=== PATIENT | male | born 1955 | race Caucasian/White ===

== ENCOUNTER 2021-03-19 10:38 | Inpatient (IN) | payer MEDICARE, OTHER ==
[2021-03-19] MEDS ORDERED: ALBUTEROL NEBULIZED 2.5 MG/3 ML INHALATION STA (11:19)
[2021-03-19] MEDS ORDERED: IPRATROPIUM-ALBUTEROL 3 ML NEB INHALATION STA (11:19)
[2021-03-19 12:34] LABS: Basophils % (A) 0 %; Eosinophils # (A) 0.2 k/uL (0-0.7); Eosinophils % (A) 1 %; HCT 45.7 % (39.0-53.0); HGB 14.7 gm/dL (13.0-17.5); Hypochromasia Slight; Lymphocytes # (A) 1.3 k/uL (1.0-4.8); Lymphocytes % (A) 7 %; MCH 28.7 pg (25.0-35.0); MCHC 32.2 g/dL (31.0-37.0); Mean Platelet Volume 7.6; Monocytes # (A) 1.2 k/uL (0-1.0); Monocytes % (A) 7 %; Neutrophils # (A) 15.1 k/uL (1.3-7.7); Neutrophils % (A) 84 %; Platelet Count 447 k/uL (150-450); RBC 5.14 m/uL (4.30-5.90); RDW 14.3 % (11.5-15.5); WBC 18.1 k/uL (3.8-10.6)
[2021-03-19 12:44] LABS: ALT 21 U/L (4-49); AST 28 U/L (17-59); African American GFR (CKD) >90 (>60 ml/min/1.73 sqM); Albumin 3.4 g/dL (3.5-5.0); Alkaline Phosphatase 158 U/L (38-126); Anion Gap 10 mmol/L; Blood Urea Nitrogen 12 mg/dL (9-20); Calcium 8.8 mg/dL (8.4-10.2); Carbon Dioxide 28 mmol/L (22-30); Chloride 87 mmol/L (98-107); Glucose 101 mg/dL (74-99); Non-African American GFR(CKD) >90 (>60 ml/min/1.73 sqM); Potassium 5.2 mmol/L (3.5-5.1); Sodium 125 mmol/L (137-145); Total Bilirubin 0.4 mg/dL (0.2-1.3); Total Protein 6.6 g/dL (6.3-8.2)
[2021-03-19 12:56] LABS: VBG PH 7.38 (7.31-7.41)
[2021-03-19 13:02] LABS: Partial Thromboplastin Time 23.3 sec (22.0-30.0); Prothrombin Time 10.8 sec (9.0-12.0)
--- NOTE | 2021-03-19 13:03 | XR ---
EXAMINATION TYPE: XR chest 2V DATE OF EXAM: 03/19/2021 COMPARISON: NONE TECHNIQUE: PA and lateral views submitted. HISTORY: Shortness of breath FINDINGS: Bilateral infiltrate and pleural effusion with interstitial pattern. No pneumothorax. Hyperinflation compatible COPD and there is hypertrophic and degenerative change of the spine. Arthropathy of the sh oulders. IMPRESSION: 1. Bilateral infiltrate and pleural effusion correlate for pneumonia versus CHF.
--- NOTE | 2021-03-19 14:23 | ED ---
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 He states he has been short of breath for the past 4 weeks. He does not wear oxygen at home. Normally sees Dr. Phillip from pulmonology. States that he does not want to follow with him any longer. He denies a cough or fevers. Does admit that the shortness of breath is exertional. Denies history of congestive heart failure. He uses his nebulizer as needed, additionally uses inhalers twice daily. States that his shortness of breath has gotten progressively worse to the point where he decided to come into the emergency department. His pulse ox normally reads around 60% when ambulatory. He presents today with oxygen level of 70% in triage and significant increased worker breathing. Denies history of DVT or PE. Patient not on any anticoagulation. No cold exposures. Is Covid vaccinated. No other alleviating precipitating or mottling factors - Related Data Home Medications Medication Instructions Recorded Confirmed Albuterol Sulfate [Ventolin HFA] 2 puff INHALATION RT-QID PRN 03/19/21 03/19/21 Budesonide [Pulmicort] 0.5 mg INHALATION RT-BID 03/19/21 03/19/21 Diltiazem Cd [Cardizem CD] 180 mg PO DAILY 03/19/21 03/19/21 Famotidine [Pepcid] 20 mg PO DAILY 03/19/21 03/19/21 Ipratropium-Albuterol Nebulize 3 ml INHALATION RT-BID PRN 03/19/21 03/19/21 [Duoneb 0.5 mg-3 mg/3 ml Soln] Montelukast [Singulair] 10 mg PO HS 03/19/21 03/19/21 Omeprazole [PriLOSEC] 20 mg PO DAILY 03/19/21 03/19/21 lisinopriL [Zestril] 5 mg PO DAILY 03/19/21 03/19/21 Allergies Allergy/AdvReac Type Severity Reaction Status Date / Time No Known Allergies Allergy Verified 03/19/21 12:44 Review of Systems ROS Statement: Those systems with pertinent positive or pertinent negative responses have been documented in the HPI. ROS Other: All systems not noted in ROS Statement are negative. Past Medical History Past Medical History: COPD, Hyperlipidemia, Hypertension Additional Past Medical History / Comment(s): burggers History of Any Multi-Drug Resistant Organisms: None Reported Additional Past Surgical History / Comment(s): bilat bka Past Psychological History: No Psychological Hx Reported Smoking Status: Former smoker Past Alcohol Use History: None Reported Past Drug Use History: None Reported General Exam Limitations: physical limitation Course Vital Signs 03/19/21 03/19/21 03/19/21 10:56 11:14 11:23 Temperature 98.2 F Pulse Rate 102 H 101 H 104 H Respiratory 26 H 28 H Rate Blood Pressure 153/83 O2 Sat by Pulse 91 L Oximetry 03/19/21 03/19/21 03/19/21 11:42 12:00 14:15 Temperature Pulse Rate 98 98 101 H Respiratory 28 H 22 Rate Blood Pressure 152/72 O2 Sat by Pulse 93 L 93 L Oximetry Medical Decision Making - Medical Decision Making On arrival patient is promptly placed in a trauma 1. A thorough history and physical exam is performed. Patient is placed on a nonrebreather. He is given a DuoNeb breathing treatment followed by an albuterol treatment. IV is established. Laboratory studies were conducted. I count 18.1. D-dimer 2.39. Sodium 125. BNP is 548. Patient does go over for chest x-ray which demonstr ates bilateral infiltrate and pleural effusions. Correlate for pneumonia versus CHF. Patient was over for CT of his chest due to his elevated d-dimer which demonstrates that he does not have a central PE. Tiny bilateral pleural effusions with some emphysematous changes and groundglass opacities right greater than left. Correlate for multifocal acute infectious process. Patient is swabbed for covid. Blood cultures are obtained and the patient is initiated on antibiotics. Solu-Medrol and magnesium were ordered for the patient COPD. Spoke with Dr. Glover who agreed to admit the patient. He is currently awaiting a bed on the floor - Lab Data Result diagrams: 03/19/21 12:00 03/19/21 12:00 Lab Results 03/19/21 03/19/21 03/19/21 Range/Units 12:00 12:00 12:00 WBC 18.1 H (3.8-10.6) k/uL RBC 5.14 (4.30-5.90) m/uL Hgb 14.7 (13.0-17.5) gm/dL Hct 45.7 (39.0-53.0) % MCV 89.0 (80.0-100.0) fL MCH 28.7 (25.0-35.0) pg MCHC 32.2 (31.0-37.0) g/dL RDW 14.3 (11.5-15.5) % Plt Count 447 (150-450) k/uL MPV 7.6 Neutrophils % 84 % Lymphocytes % 7 % Monocytes % 7 % Eosinophils % 1 % Basophils % 0 % Neutrophils # 15.1 H (1.3-7.7) k/uL Lymphocytes # 1.3 (1.0-4.8) k/uL Monocytes # 1.2 H (0-1.0) k/uL Eosinophils # 0.2 (0-0.7) k/uL Basophils # 0.0 (0-0.2) k/uL Hypochromasia Slight PT 10.8 (9.0-12.0) sec INR 1.0 (<1.2) APTT 23.3 (22.0-30.0) sec D-Dimer 2.39 H (<0.60) mg/L FEU VBG pH (7.31-7.41) VBG pCO2 (37-51) mmHg VBG HCO3 (24-28) mmol/L Sodium 125 L (137-145) mmol/L Potassium 5.2 H (3.5-5.1) mmol/L Chloride 87 L (98-107) mmol/L Carbon Dioxide 28 (22-30) mmol/L Anion Gap 10 mmol/L BUN 12 (9-20) mg/dL Creatinine 0.56 L (0.66-1.25) mg/dL Est GFR (CKD-EPI)AfAm >90 (>60 ml/min/1.73 sqM) Est GFR (CKD-EPI)NonAf >90 (>60 ml/min/1.73 sqM) Glucose 101 H (74-99) mg/dL Plasma Lactic Acid Jesus (0.7-2.0) mmol/L Calcium 8.8 (8.4-10.2) mg/dL Total Bilirubin 0.4 (0.2-1.3) mg/dL AST 28 (17-59) U/L ALT 21 (4-49) U/L Alkaline Phosphatase 158 H (38-126) U/L Troponin I (0.000-0.034) ng/mL NT-Pro-B Natriuret Pep pg/mL Total Protein 6.6 (6.3-8.2) g/dL Albumin 3.4 L (3.5-5.0) g/dL 03/19/21 03/19/21 03/19/21 Range/Units 12:00 12:00 12:00 WBC (3.8-10.6) k/uL RBC (4.30-5.90) m/uL Hgb (13.0-17.5) gm/dL Hct (39.0-53.0) % MCV (80.0-100.0) fL MCH (25.0-35.0) pg MCHC (31.0-37.0) g/dL RDW (11.5-15.5) % Plt Count (150-450) k/uL MPV Neutrophils % % Lymphocytes % % Monocytes % % Eosinophils % % Basophils % % Neutrophils # (1.3-7.7) k/uL Lymphocytes # (1.0-4.8) k/uL Monocytes # (0-1.0) k/uL Eosinophils # (0-0.7) k/uL Basophils # (0-0.2) k/uL Hypochromasia PT (9.0-12.0) sec INR (<1.2) APTT (22.0-30.0) sec D-Dimer (<0.60) mg/L FEU VBG pH (7.31-7.41) VBG pCO2 (37-51) mmHg VBG HCO3 (24-28) mmol/L Sodium (137-145) mmol/L Potassium (3.5-5.1) mmol/L Chloride (98-107) mmol/L Carbon Dioxide (22-30) mmol/L Anion Gap mmol/L BUN (9-20) mg/dL Creatinine (0.66-1.25) mg/dL Est GFR (CKD-EPI)AfAm (>60 ml/min/1.73 sqM) Est GFR (CKD-EPI)NonAf (>60 ml/min/1.73 sqM) Glucose (74-99) mg/dL Plasma Lactic Acid Jesus 1.2 (0.7-2.0) mmol/L Calcium (8.4-10.2) mg/dL Total Bilirubin (0.2-1.3) mg/dL AST (17-59) U/L ALT (4-49) U/L Alkaline Phosphatase (38-126) U/L Troponin I <0.012 (0.000-0.034) ng/mL NT-Pro-B Natriuret Pep 548 pg/mL Total Protein (6.3-8.2) g/dL Albumin (3.5-5.0) g/dL 03/19/21 Range/Units 12:41 WBC (3.8-10.6) k/uL RBC (4.30-5.90) m/uL Hgb (13.0-17.5) gm/dL Hct (39.0-53.0) % MCV (80.0-100.0) fL MCH (25.0-35.0) pg MCHC (31.0-37.0) g/dL RDW (11.5-15.5) % Plt Count (150-450) k/uL MPV Neutrophils % % Lymphocytes % % Monocytes % % Eosinophils % % Basophils % % Neutrophils # (1.3-7.7) k/uL Lymphocytes # (1.0-4.8) k/uL Monocytes # (0-1.0) k/uL Eosinophils # (0-0.7) k/uL Basophils # (0-0.2) k/uL Hypochromasia PT (9.0-12.0) sec INR (<1.2) APTT (22.0-30.0) sec D-Dimer (<0.60) mg/L FEU VBG pH 7.38 (7.31-7.41) VBG pCO2 54 H (37-51) mmHg VBG HCO3 31 H (24-28) mmol/L Sodium (137-145) mmol/L Potassium (3.5-5.1) mmol/L Chloride (98-107) mmol/L Carbon Dioxide (22-30) mmol/L Anion Gap mmol/L BUN (9-20) mg/dL Creatinine (0.66-1.25) mg/dL Est GFR (CKD-EPI)AfAm (>60 ml/min/1.73 sqM) Est GFR (CKD-EPI)NonAf (>60 ml/min/1.73 sqM) Glucose (74-99) mg/dL Plasma Lactic Acid Jesus (0.7-2.0) mmol/L Calcium (8.4-10.2) mg/dL Total Bilirubin (0.2-1.3) mg/dL AST (17-59) U/L ALT (4-49) U/L Alkaline Phosphatase (38-126) U/L Troponin I (0.000-0.034) ng/mL NT-Pro-B Natriuret Pep pg/mL Total Protein (6.3-8.2) g/dL Albumin (3.5-5.0) g/dL - EKG Data EKG Comments: EKG demonstrates sinus tachycardia with a ventricular rate of 11. IL interval 146. QRS 92. QTC 456. Some baseline artifact. No acute ST segment elevations or depressions Disposition Clinical Impression: Hypoxia, CAP (community acquired pneumonia), COPD (chronic obstructive pulmonary disease), Leukocytosis Disposition: ADMITTED IP TO THIS HOSP Condition: Serious Is patient prescribed a controlled substance at d/c from ED?: No Referrals: David Dasilva MD [Primary Care Provider] - 1-2 days Decision to Admit Reason: Admit from EC Decision Date: 03/19/21 Decision Time: 14:43
--- NOTE | 2021-03-19 14:37 | CT ---
EXAMINATION TYPE: CT chest angio for PE DATE OF EXAM: 03/19/2021 COMPARISON: Chest x-ray earlier today HISTORY: Shortness of breath, hypoxia, elevated d-dimer CT DLP: 799.2 mGycm Automated exposure control for dose reduction was used. CONTRAST: CT Chest for pulmonary embolism performed with with IV Contrast, patient injected with 100 mL of Isov ue 370. FINDINGS: LUNGS: Moderate emphysematous change greatest in the upper lungs and periphery is present. There are tiny right greater than left pleural effusions including extension of pleural fluid in the right lung into the right-sided fissure. There are multifocal areas of groundglass opacity in the left midlung. There is dense consolidation in the right lower lobe greatest posterior basilar region. Groundglass opacity and organizing consolidation in the posterior left lung base also present. No pneumothorax se en bilaterally. MEDIASTINUM: There is suboptimal study with equal dense contrast in the aorta versus pulmonary arteri es and most dense contrast in the SVC. No central pulmonary embolism is present. This heterogeneity making evaluation for peripheral segmental and subsegmental PE suboptimal. Satisfactory enhancement o f the thoracic aorta without aneurysm or dissection is noted. Enlarged main pulmonary artery of 3.5 c m axial image 61 consistent with product of underlying pulmonary artery hypertension. There are promi nent bilateral hilar lymph nodes. There is enlarged 2.2 x 1.3 cm subcarinal lymph node image 76. Ther e are prominent partially calcified AP window lymph nodes. There is slightly enlarged 1.5 x 1.1 cm ri ght paratracheal lymph node axial image 57. Heart size upper limits of normal. There is lipomatous hy pertrophy of the intra-arterial septum with mass effect on the anterior wall of the left atrium. Ther e is moderate right atrial dilatation. No pericardial effusion is seen. OTHER: Moderate multilevel spurring in the visualized spine. IMPRESSION: 1. Suboptimal study without central pulmonary embolism. Smaller peripheral segmental and subsegmental PE not entirely excluded on this study. 2. Tiny bilateral pleural effusions. Background moderate to advanced emphysematous change with left m idlung multifocal groundglass opacities and basilar groundglass opacities with organizing consolidati ons right greater than left. Correlate for multifocal acute infectious process. Reactive thoracic livia nopathy suspected.
[2021-03-19] MEDS ORDERED: MAGNESIUM SULFATE-D5W PMX 1 GM in DEXTROSE/WATER 1 100ML.BAG IVPB ONE (14:39)
[2021-03-19] MEDS ORDERED: methylPREDNISolone SOD SUCCI 125 MG/2 ML VIAL IV STA (14:39)
[2021-03-19] MEDS ORDERED: cefTRIAXone IN SWFI 1,000 MG/10 ML SYRINGE IVP STA (14:39)
[2021-03-19] MEDS ORDERED: AZITHROMYCIN 500 MG in SODIUM CHLORIDE 0.9% 250 ML IVPB STA (14:39)
[2021-03-19] MEDS ORDERED: NALOXONE 0.4 MG/ML 1 ML VIAL IV PRN (15:24)
--- NOTE | 2021-03-19 16:40 | P.CNPUL ---
History of Present Illness Consult date: 03/19/21 Requesting physician: Enid Parkinson Reason for consult: dyspnea Chief complaint: Shortness of breath History of present illness: This is a 65-year-old male patient with past medical history of COPD, former smoker, hypertension, hyperlipidemia, bilateral below the knee amputations [place] to Burger syndrome [place] [address] Betancur, who presented to the emergency department on 03/19/2021 complaining of increased shortness of breath for the past 4 weeks. He is not oxygen dependent at baseline. He normally sees Dr. Inocente Phillip for his history of COPD however does not want to follow with him any l onger. He states he has advanced COPD, and was recently told that his FEV1 dropped from 36% down to 22% in November of this year. He describes progressive shortness of breath, and now he is short of breath just getting dressed. Denied any worsening cough, denied any fevers, at times is able to produce some white colored phlegm. His shortness of breath is mostly exertional. Denies any history of chronic CHF. No lower extremity swelling. He is on nebulized Pulmicort, Ventolin HFA inhaler, and Singulair. His chest x-ray showed bilateral infiltrates and pleural effusions with the possibility of pneumonia versus CHF. There was hyperinflation compatible with COPD. COVID 19 PCR was negative, admission blood work showed elevated d-dimer of 2.39, and for that reason CTA chest was completed, showing no evidence of central pulmonary embolism, this was a suboptimal study, small peripheral segmental and subsegmental PEs could not entirely be excluded. There was evidence of tiny bilateral pleural effusions, on a background of moderate to advanced emphysematous changes with left midlung multifocal groundglass opacities and basilar groundglass opacities with organizing consolidations right greater than left, with suspicion of multifocal acute infectious process. Patient did have leukocytosis with a white blood cell, of 18.1, hemoglobin was 14.7, sodium was 125, potassium is 5.2, chloride was 87, CO2 was 28, BUN is 12, creatinine 0.56, troponin was less than 0.012, proBNP was 548, LFTs were within normal limits. Patient was started on a combination of azithromycin and Rocephin, IV steroids with Solu-Medrol 40 mg every 8 hours, nebulized bronchodilators and this consult was initiated. Review of Systems All systems: negative Constitutional: Denies chills, Denies fever Eyes: denies blurred vision, denies pain Ears, nose, mouth and throat: Denies headache, Denies sore throat Cardiovascular: Denies chest pain, Denies shortness of breath Respiratory: Reports dyspnea, Denies cough Gastrointestinal: Denies abdominal pain, Denies diarrhea, Denies nausea, Denies vomiting Musculoskeletal: Denies myalgias Integumentary: Denies pruritus, Denies rash Neurological: Denies numbness, Denies weakness Psychiatric: Denies anxiety, Denies depression Endocrine: Denies fatigue, Denies weight change Past Medical History Past Medical History: COPD, Hyperlipidemia, Hypertension Additional Past Medical History / Comment(s): vanessa History of Any Multi-Drug Resistant Organisms: None Reported Additional Past Surgical History / Comment(s): bilat bka Past Psychological History: No Psychological Hx Reported Smoking Status: Former smoker Past Alcohol Use History: None Reported Past Drug Use History: None Reported Medications and Allergies Home Medications Medication Instructions Recorded Confirmed Type Albuterol Sulfate [Ventolin HFA] 2 puff INHALATION RT-QID PRN 03/19/21 03/19/21 History Budesonide [Pulmicort] 0.5 mg INHALATION RT-BID 03/19/21 03/19/21 History Diltiazem Cd [Cardizem CD] 180 mg PO DAILY 03/19/21 03/19/21 History Famotidine [Pepcid] 20 mg PO DAILY 03/19/21 03/19/21 History Ipratropium-Albuterol Nebulize 3 ml INHALATION RT-BID PRN 03/19/21 03/19/21 History [Duoneb 0.5 mg-3 mg/3 ml Soln] Montelukast [Singulair] 10 mg PO HS 03/19/21 03/19/21 History Omeprazole [PriLOSEC] 20 mg PO DAILY 03/19/21 03/19/21 History lisinopriL [Zestril] 5 mg PO DAILY 03/19/21 03/19/21 History Allergies Allergy/AdvReac Type Severity Reaction Status Date / Time No Known Allergies Allergy Verified 03/19/21 12:44 Physical Exam Vitals: Vital Signs Temp Pulse Resp BP Pulse Ox 09/13/21 15:20 98.3 F 107 H 20 149/79 94 L 03/19/21 14:15 101 H 22 152/72 93 L 03/19/21 12:00 98 28 H 93 L 03/19/21 11:42 98 03/19/21 11:23 104 H 03/19/21 11:14 101 H 28 H 91 L 03/19/21 10:56 98.2 F 102 H 26 H 153/83 Intake and Output 03/19/21 03/19/21 03/19/21 06:59 14:59 22:59 Other: Weight 113.398 kg GENERAL EXAM: Alert, very pleasant, 65-year-old white male on 50% Ventimask with shallow breathing resting on the gurney in the emergency department comfortable in no apparent distress. HEAD: Normocephalic/atraumatic. EYES: Normal reaction of pupils, equal size. Conjunctiva pink, sclera white. NOSE: Clear with pink turbinates. THROAT: No erythema or exudates. NECK: No masses, no JVD, no thyroid enlargement, no adenopathy. CHEST: No chest wall deformity. Symmetrical expansion. LUNGS: Equal air entry with diffuse crackles at bilateral bases, and mild wheezing CVS: Regular rate and rhythm, normal S1 and S2, no gallops, no murmurs, no rubs ABDOMEN: Soft, nontender. No hepatosplenomegaly, normal bowel sounds, no guarding or rigidity. EXTREMITIES: No clubbing, no edema, no cyanosis, 2+ pulses and upper and lower extremities. MUSCULOSKELETAL: Muscle strength and tone normal. Bilateral below the knee amputation, patient has bilateral prosthesis SPINE: No scoliosis or deformity SKIN: No rashes CENTRAL NERVOUS SYSTEM: Alert and oriented -3. No focal deficits, tone is normal in all 4 extremities. PSYCHIATRIC: Alert and oriented -3. Appropriate affect. Intact judgment and insight. Results - Laboratory Findings CBC and BMP: 03/19/21 12:00 03/19/21 12:00 PT/INR, D-dimer PT 10.8 sec (9.0-12.0) 03/19/21 12:00 INR 1.0 (<1.2) 03/19/21 12:00 D-Dimer 2.39 mg/L FEU (<0.60) H 03/19/21 12:00 Abnormal lab findings: Abnormal Labs 03/19/21 03/19/21 03/19/21 12:00 12:00 12:00 WBC 18.1 H Neutrophils # 15.1 H Monocytes # 1.2 H D-Dimer 2.39 H VBG pCO2 VBG HCO3 Sodium 125 L Potassium 5.2 H Chloride 87 L Creatinine 0.56 L Glucose 101 H Alkaline Phosphatase 158 H Albumin 3.4 L 03/19/21 12:41 WBC Neutrophils # Monocytes # D-Dimer VBG pCO2 54 H VBG HCO3 31 H Sodium Potassium Chloride Creatinine Glucose Alkaline Phosphatase Albumin - Diagnostic Findings Chest x-ray: report reviewed, image reviewed CT scan - chest: report reviewed, image reviewed Assessment and Plan Plan: Assessment: #1. Acute hypoxic respiratory failure related to acute exacerbation of COPD, and bilateral pneumonia. COVID-19 PCR was negative, chest x-ray shows bilateral infiltrates and pleural effusion. CTA chest was negative for pulmonary emboli sm, it did show tiny bilateral pleural effusions, multifocal groundglass opacities and basilar groundglass opacities with organizing consolidations right greater than left, correlating for multifocal acute infectious process. #2. Severe stage IV COPD with most recent reported FEV1 of 22% of predicted from November 2020, Prior FEV1 from 5 years ago was 36% of predicted. Was not oxygen dependent up to this point #3. 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 History of Buerger's disease, this post bilateral below the [place] [address] Betancur. Patient has bilateral lower extremity stasis #5. Hypertension #6. Hyperlipidemia #7. Hyponatremia, possibly hypovolemic #8. Increased d-dimer without CTA evidence of pulmonary embolism Plan: We'll switch the antibiotic coverage to Zosyn Continue steroids, Continue nebulized bronchodilators Pro-calcitonin level We'll increase the Pulmicort to 1 mg twice daily We'll add Perforomist Patient wants to be considered for Birney valve on an outpatient basis He also asked about a possibility of a lung transplant CT chest shows extensive emphysema in the upper lungs and periphery in bilateral lungs Likely not going to benefit from Birney valve, but he can certainly undergo outpatient evaluation once he is recovered from this episode The process of lung transplant evaluation was briefly described, and patient can certainly be referred for evaluation once he is recovered from this episode Although it is doubtful that he will be a good candidate for the lung transplant, his age is already 65, his level of functioning is already limited In the meantime we'll continue to optimize his pulmonary status he will likely need home oxygen to go home on Send a sputum specimen Continue Zosyn for antibiotic coverage We'll continue to follow and make further recommendations His family was advised to bring in his films from the [facility] where the patient was seeing Dr. OLIVIA Phillip I performed a history & physical examination of the patient and discussed their management with my nurse practitioner, Georgina Jackson. I reviewed the nurse practitioner's note and agree with the documented findings and plan of care. Lung sounds are positive for diffuse wheezes and bibasilar crackles throughout the lung alston. The findings and the impression was discussed with the patient. I attest to the documentation by the nurse practitioner. Time with Patient: Greater than 30
--- NOTE | 2021-03-19 18:08 | P.HPIM ---
History of Present Illness This is a pleasant 65 years old male with past medical history of COPD, hyperlipidemia, hypertension, vertigo disease status post amputation of both lower extremities with bilateral lower extremity prosthesis. Presents because of worsening dyspnea over 4 months. He was getting gradually worse associated with Little Phlegm but No Chest Pain. He Has History of COPD He Is to Follow up with Dr. Zaidi and He Wants to Switch His [employer] In [employer] or [employer]. He denies nausea vomiting or diarrhea. No urinary complaints. He denies smoking, alcohol or illicit drugs. On admission he was tachycardic with heart rate around 101 207. Tachypneic with a breathing rate 20-28. Little hypertensive at 149/79. And hypoxic needing 10 L oxygen via Ventimask to keep saturation above 98% Labs showed leukocytosis at 18.1 with results of CBC is unremarkable. D-dimer is elevated at 2.3. Sodium is 125, creatinine normal at 0.5. Rest of BMP and liver enzymes are unremarkable. Coronavirus not detected. EKG: Sinus tachycardia at [address]-T changes and QTC of 456. ProBNP is 548. Chest x-ray: Bilateral infiltrates and pleural effusion correlate for pneumonia versus CHF. CT of the chest showing no pulmonary embolism, suboptimal study. Also tiny pleural effusion on both sides. Background moderate to advanced emphysematous change with left midlung multifocal groundglass opacity and basilar groundglass opacity with organizing consolidation right greater than left. Correlate for multifocal acute infectious process. Reactive thoracic adenopathy suspected Review of Systems CONSTITUTIONAL: No fever, no malaise, no fatigue. HEENT: No recent visual problems or hearing problems. Denied any sore throat. CARDIOVASCULAR: No orthopnea, PND, no palpitations, no syncope. PULMONARY: No chest wall tenderness, no hemoptysis. GASTROINTESTINAL: No diarrhea, no nausea, no vomiting, no abdominal pain. Normoactive bowel sounds. NEUROLOGICAL: No headaches, no weakness, no numbness. HEMATOLOGICAL: Denies any bleeding or petechiae. GENITOURINARY: Denies any burning micturition, frequency, or urgency. MUSCULOSKELETAL/RHEUMATOLOGICAL: Denies any joint pain, swelling, or any muscle pain. ENDOCRINE: Denies any polyuria or polydipsia. Past Medical History Past Medical History: COPD, Hyperlipidemia, Hypertension Additional Past Medical History / Comment(s): burggers History of Any Multi-Drug Resistant Organisms: None Reported Additional Past Surgical History / Comment(s): bilat bka Past Anesthesia/Blood Transfusion Reactions: Previous Problems w/ Anesthesia Additional Past Anesthesia/Blood Transfusion Reaction / Comment(s): difficulty waking from anesthesia. Past Psychological History: No Psychological Hx Reported Smoking Status: Former smoker Past Alcohol Use History: None Reported Past Drug Use History: None Reported Medications and Allergies Home Medications Medication Instructions Recorded Confirmed Type Albuterol Sulfate [Ventolin HFA] 2 puff INHALATION RT-QID PRN 03/19/21 03/19/21 History Budesonide [Pulmicort] 0.5 mg INHALATION RT-BID 03/19/21 03/19/21 History Diltiazem Cd [Cardizem CD] 180 mg PO DAILY 03/19/21 03/19/21 History Famotidine [Pepcid] 20 mg PO DAILY 03/19/21 03/19/21 History Ipratropium-Albuterol Nebulize 3 ml INHALATION RT-BID PRN 03/19/21 03/19/21 History [Duoneb 0.5 mg-3 mg/3 ml Soln] Montelukast [Singulair] 10 mg PO HS 03/19/21 03/19/21 History Omeprazole [PriLOSEC] 20 mg PO DAILY 03/19/21 03/19/21 History lisinopriL [Zestril] 5 mg PO DAILY 03/19/21 03/19/21 History Allergies Allergy/AdvReac Type Severity Reaction Status Date / Time No Known Allergies Allergy Verified 03/19/21 12:44 Physical Exam Vitals: Vital Signs Temp Pulse Pulse Resp BP BP Pulse Ox 03/19/21 16:20 97.6 F 105 H 18 160/80 89 L 03/19/21 15:20 98.3 F 107 H 20 149/79 94 L 03/19/21 14:15 101 H 22 152/72 93 L 03/19/21 12:00 98 28 H 93 L 03/19/21 11:42 98 03/19/21 11:23 104 H 03/19/21 11:14 101 H 28 H 91 L 03/19/21 10:56 98.2 F 102 H 26 H 153/83 Intake and Output 03/19/21 03/19/21 03/19/21 06:59 14:59 22:59 Intake Total 360 Balance 360 Intake: Oral 360 Other: # Voids 3 Weight 113.398 kg 113.398 kg GENERAL: The patient is alert and oriented x3, not in any acute distress. Well developed, well nourished. HEENT: Pupils are round and equally reacting to light. EOMI. No scleral icterus. No conjunctival pallor. Normocephalic, atraumatic. No pharyngeal erythema. No thyromegaly. CARDIOVASCULAR: S1 and S2 present. No murmurs, rubs, or gallops. -PULMONARY: Chest is clear to auscultation, no wheezing . Bilateral crepitation ABDOMEN: Soft, nontender, nondistended, normoactive bowel sounds. No palpable organomegaly. MUSCULOSKELETAL: No joint swelling or deformity. EXTREMITIES: No cyanosis, clubbing, or pedal edema. NEUROLOGICAL: Gross neurological examination did not reveal any focal deficits. SKIN: No rashes. No petechiae . Bilateral regurgitatio Results CBC & Chem 7: 03/19/21 12:00 03/19/21 12:00 Labs: Abnormal Lab Results - Last 24 Hours (Table) 03/19/21 03/19/21 03/19/21 Range/Units 12:00 12:00 12:00 WBC 18.1 H (3.8-10.6) k/uL Neutrophils # 15.1 H (1.3-7.7) k/uL Monocytes # 1.2 H (0-1.0) k/uL D-Dimer 2.39 H (<0.60) mg/L FEU VBG pCO2 (37-51) mmHg VBG HCO3 (24-28) mmol/L Sodium 125 L (137-145) mmol/L Potassium 5.2 H (3.5-5.1) mmol/L Chloride 87 L (98-107) mmol/L Creatinine 0.56 L (0.66-1.25) mg/dL Glucose 101 H (74-99) mg/dL Osmolality (280-301) mosm/kg Alkaline Phosphatase 158 H (38-126) U/L Albumin 3.4 L (3.5-5.0) g/dL 03/19/21 03/19/21 Range/Units 12:00 12:41 WBC (3.8-10.6) k/uL Neutrophils # (1.3-7.7) k/uL Monocytes # (0-1.0) k/uL D-Dimer (<0.60) mg/L FEU VBG pCO2 54 H (37-51) mmHg VBG HCO3 31 H (24-28) mmol/L Sodium (137-145) mmol/L Potassium (3.5-5.1) mmol/L Chloride (98-107) mmol/L Creatinine (0.66-1.25) mg/dL Glucose (74-99) mg/dL Osmolality 264 L (280-301) mosm/kg Alkaline Phosphatase (38-126) U/L Albumin (3.5-5.0) g/dL Thrombosis Risk Factor Assmnt - Choose All That Apply Each Factor Represents 1 point: Abnormal pulmonary function (COPD), Age 41-60 years Other Risk Factors: Yes Each Risk Factor Represents 2 Points: Age 61-74 years Thrombosis Risk Factor Assessment Total Risk Factor Score: 4 Thrombosis Risk Factor Assessment Level: Moderate Risk Assessment and Plan Assessment: Bilateral multifocal pneumonia Advanced COPD with exacerbation Acute hypoxic respiratory failure secondary to above Hypertension Hyperlipidemia History of Buerger disease status post lower extremity bilateral amputation Plan: this is a pleasant 65 years old male who presents with bilateral pneumonia, COPD and hypoxia. Continue with Solu-Medrol 40 mg Spectrum antibiotics currently is on Zosyn Continue with December the breathing treatments and oxygen to keep saturating above 88% to 90% pulmonary consult is appreciated Labs and medication were reviewed.. Continue same treatment. Continue with symptomatic treatment. Resume home medication. Monitor lytes and vitals. DVT and GI prophylaxis. Further recommendationsas per clinical course of the patient DVT prophylaxis: Subcutaneous heparin GI Prophylaxis: Ppi PT/OT: Pending Prognosis is guarded
[2021-03-19] MEDS: SODIUM CHLORIDE 0.9% 1,000 ML IV SCH (18:27)
[2021-03-19] MEDS: LEVOFLOXACIN 750 MG TAB PO SCH (18:27)
[2021-03-19] MEDS: methylPREDNISolone SOD SUCCI 40 MG/ML 1 ML VIAL IV SCH (19:06)
[2021-03-19] MEDS: FORMOTEROL FUMARATE 20 MCG/2 ML NEBU INHALATION SCH (19:51)
[2021-03-19] MEDS: IPRATROPIUM-ALBUTEROL 3 ML NEB INHALATION PRN (19:51)
[2021-03-19] MEDS: BUDESONIDE 0.5 MG/2 ML NEBU INHALATION SCH (19:51)
[2021-03-19] MEDS: MONTELUKAST 10 MG TAB PO SCH (20:30)
[2021-03-19] MEDS: HEPARIN SODIUM,PORCINE/PF 5,000 UNIT/0.5 ML SYRINGE SQ SCH (20:30)
[2021-03-20] MEDS: PIPERACILLIN-TAZOBACTAM 3.375 GM in SODIUM CHLORIDE 0.9% 100 ML IVPB SCH ×3 (00:50→15:59)
[2021-03-20] MEDS: methylPREDNISolone SOD SUCCI 40 MG/ML 1 ML VIAL IV SCH ×3 (04:47→20:33)
[2021-03-20 07:12] LABS: African American GFR (CKD) >90 (>60 ml/min/1.73 sqM); Anion Gap 8 mmol/L; Blood Urea Nitrogen 10 mg/dL (9-20); Carbon Dioxide 34 mmol/L (22-30); Chloride 92 mmol/L (98-107); Glucose 175 mg/dL (74-99); Non-African American GFR(CKD) >90 (>60 ml/min/1.73 sqM); Potassium 5.9 mmol/L (3.5-5.1); Sodium 134 mmol/L (137-145)
[2021-03-20] MEDS ORDERED: DEXTROSE 50% SYRINGE 50 ML IVP STA (07:34)
[2021-03-20] MEDS ORDERED: FUROSEMIDE 10 MG/ML 4 ML VIAL IV STA (07:34)
[2021-03-20] MEDS ORDERED: INSULIN REGULAR 100 UNIT/ML VIAL (IV) IV ONE (07:34)
[2021-03-20] MEDS: HEPARIN SODIUM,PORCINE/PF 5,000 UNIT/0.5 ML SYRINGE SQ SCH ×2 (08:09→20:33)
[2021-03-20] MEDS: FAMOTIDINE 20 MG TAB PO SCH (08:09)
[2021-03-20] MEDS: PANTOPRAZOLE 40 MG TABLET PO SCH (08:25)
[2021-03-20] MEDS: DILTIAZEM CD 180 MG CAP.ER.24H PO SCH (08:25)
[2021-03-20] MEDS: FORMOTEROL FUMARATE 20 MCG/2 ML NEBU INHALATION SCH ×2 (08:28→19:26)
[2021-03-20] MEDS: BUDESONIDE 0.5 MG/2 ML NEBU INHALATION SCH ×2 (08:28→19:15)
[2021-03-20] MEDS: IPRATROPIUM-ALBUTEROL 3 ML NEB INHALATION PRN ×4 (08:28→19:15)
[2021-03-20] MEDS ORDERED: lisinopriL 5 MG TAB PO SCH (09:00)
[2021-03-20] MEDS: SODIUM CHLORIDE 0.9% 1,000 ML IV SCH ×2 (09:22→20:36)
[2021-03-20 09:37] LABS: Basophils # (A) 0.02 X 10*3/uL (0.00-0.10); Basophils % (A) 0.2 %; Eosinophils # (A) 0 X 10*3/uL (0.04-0.35); Eosinophils % (A) 0 %; HCT 46.7 % (39.6-50.0); Lymphocytes # (A) 0.48 X 10*3/uL (0.90-5.00); Lymphocytes % (A) 3.8 %; MCH 27.3 pg (27.0-32.0); MCV 91.2 fL (80.0-97.0); Mean Platelet Volume 9.4 fL (9.5-12.2); Monocytes # (A) 0.24 X 10*3/uL (0.20-1.00); Monocytes % (A) 1.9 %; Neutrophils # (A) 11.79 X 10*3/uL (1.80-7.70); Neutrophils % (A) 92.8 %; Platelet Count 443 X 10*3/uL (140-440); RBC 5.12 X 10*6/uL (4.40-5.60); RDW 14.8 % (11.5-14.5); WBC 12.69 X 10*3/uL (4.50-10.00)
--- NOTE | 2021-03-20 12:28 | P.PN ---
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 Presents because of worsening dyspnea over 4 months. He was getting gradually worse associated with Little Phlegm but No Chest Pain. He Has History of COPD He Is to Follow up with Dr. Zaidi and He Wants to Switch His [employer] or [employer]. He denies nausea vomiting or diarrhea. No urinary complaints. He denies smoking, alcohol or illicit drugs. On admission he was tachycardic with heart rate around 101 207. Tachypneic with a breathing rate 20-28. Little hypertensive at 149/79. And hypoxic needing 10 L oxygen via Ventimask to keep saturation above 98% Labs showed leukocytosis at 18.1 with results of CBC is unremarkable. D-dimer is elevated at 2.3. Sodium is 125, creatinine normal at 0.5. Rest of BMP and liver enzymes are unremarkable. Coronavirus not detected. EKG: Sinus tachycardia at [address]-T changes and QTC of 456. ProBNP is 548. Chest x-ray: Bilateral infiltrates and pleural effusion correlate for pneumonia versus CHF. CT of the chest showing no pulmonary embolism, suboptimal study. Also tiny pleural effusion on both sides. Background moderate to advanced emphysematous change with left midlung multifocal groundglass opacity and basilar groundglass opacity with organizing consolidation right greater than left. Correlate for multifocal acute infectious process. Reactive thoracic adenopathy suspected 03/20/2021 The patient feels less dyspneic while he is at rest. His oxygen requirement down to 8 L/m His leukocytosis improved on 12.6 K, sodium improved up to 134. Potassium high at 5.9, one-time dose of Lasix, insulin/dextrose 50 is given and placed on low- dose potassium diet This reportcalcitonin is mildly elevated at 0.23. He remains on Zosyn, Levaquin, and at 75 mL/h and Solu-Medrol 40 mg Objective - Vital Signs Vital signs: Vital Signs Temp 98.4 F 03/20/21 07:05 Pulse 108 H 03/20/21 12:10 Resp 17 03/20/21 07:05 BP 126/85 03/20/21 07:05 Pulse Ox 96 03/20/21 07:05 Intake & Output 0903/20/21 03/20/21 18:59 06:59 18:59 Intake Total 360 Output Total 1000 Balance 360 -1000 Weight 113.398 kg Intake: Oral 360 Output: Urine 1000 Other: # Voids 3 # Bowel Movements 0 - Exam -GENERAL: The patient is alert and oriented x3, not in any acute distress. Obese HEENT: Pupils are round and equally reacting to light. EOMI. No scleral icterus. No conjunctival pallor. Normocephalic, atraumatic. No pharyngeal erythema. No thyromegaly. CARDIOVASCULAR: S1 and S2 present. No murmurs, rubs, or gallops. PULMONARY: Chest is clear to auscultation, no wheezing or crackles. ABDOMEN: Soft, nontender, nondistended, normoactive bowel sounds. No palpable organomegaly. MUSCULOSKELETAL: No joint swelling or deformity. EXTREMITIES: No cyanosis, clubbing, or pedal edema. NEUROLOGICAL: Gross neurological examination did not reveal any focal deficits. SKIN: No rashes. no petechiae. - Labs CBC & Chem 7: 03/20/21 06:30 03/20/21 06:30 Labs: Abnormal Lab Results - Last 24 Hours (Table) 03/19/21 03/19/21 03/19/21 Range/Units 12:00 12:00 12:00 WBC 18.1 H (3.8-10.6) k/uL MCHC (32.0-37.0) g/dL RDW (11.5-14.5) % Plt Count (140-440) X 10*3/uL MPV (9.5-12.2) fL Immature Gran # (0.00-0.04) X 10*3/uL Neutrophils # 15.1 H (1.3-7.7) k/uL Lymphocytes # (0.90-5.00) X 10*3/uL Monocytes # 1.2 H (0-1.0) k/uL Eosinophils # (0.04-0.35) X 10*3/uL D-Dimer 2.39 H (<0.60) mg/L FEU VBG pCO2 (37-51) mmHg VBG HCO3 (24-28) mmol/L Sodium 125 L (137-145) mmol/L Potassium 5.2 H (3.5-5.1) mmol/L Chloride 87 L (98-107) mmol/L Carbon Dioxide (22-30) mmol/L Creatinine 0.56 L (0.66-1.25) mg/dL Glucose 101 H (74-99) mg/dL Osmolality (280-301) mosm/kg Alkaline Phosphatase 158 H (38-126) U/L Albumin 3.4 L (3.5-5.0) g/dL Procalcitonin (0.02-0.09) ng/mL 03/19/21 03/19/21 03/19/21 Range/Units 12:00 12:00 12:41 WBC (3.8-10.6) k/uL MCHC (32.0-37.0) g/dL RDW (11.5-14.5) % Plt Count (140-440) X 10*3/uL MPV (9.5-12.2) fL Immature Gran # (0.00-0.04) X 10*3/uL Neutrophils # (1.3-7.7) k/uL Lymphocytes # (0.90-5.00) X 10*3/uL Monocytes # (0-1.0) k/uL Eosinophils # (0.04-0.35) X 10*3/uL D-Dimer (<0.60) mg/L FEU VBG pCO2 54 H (37-51) mmHg VBG HCO3 31 H (24-28) mmol/L Sodium (137-145) mmol/L Potassium (3.5-5.1) mmol/L Chloride (98-107) mmol/L Carbon Dioxide (22-30) mmol/L Creatinine (0.66-1.25) mg/dL Glucose (74-99) mg/dL Osmolality 264 L (280-301) mosm/kg Alkaline Phosphatase (38-126) U/L Albumin (3.5-5.0) g/dL Procalcitonin 0.13 H (0.02-0.09) ng/mL 03/20/21 03/20/21 Range/Units 06:30 06:30 WBC 12.69 H (3.8-10.6) k/uL MCHC 30.0 L (32.0-37.0) g/dL RDW 14.8 H (11.5-14.5) % Plt Count 443 H (140-440) X 10*3/uL MPV 9.4 L (9.5-12.2) fL Immature Gran # 0.16 H (0.00-0.04) X 10*3/uL Neutrophils # 11.79 H (1.3-7.7) k/uL Lymphocytes # 0.48 L (0.90-5.00) X 10*3/uL Monocytes # (0-1.0) k/uL Eosinophils # 0 L (0.04-0.35) X 10*3/uL D-Dimer (<0.60) mg/L FEU VBG pCO2 (37-51) mmHg VBG HCO3 (24-28) mmol/L Sodium 134 L (137-145) mmol/L Potassium 5.9 H (3.5-5.1) mmol/L Chloride 92 L (98-107) mmol/L Carbon Dioxide 34 H (22-30) mmol/L Creatinine 0.52 L (0.66-1.25) mg/dL Glucose 175 H (74-99) mg/dL Osmolality (280-301) mosm/kg Alkaline Phosphatase (38-126) U/L Albumin (3.5-5.0) g/dL Procalcitonin (0.02-0.09) ng/mL Assessment and Plan Assessment: Bilateral diffuse groundglass with organizing pneumonia Advanced COPD with exacerbation Acute hypoxic respiratory failure secondary to above Hypertension Hyperlipidemia History of Buerger disease status post lower extremity bilateral amputation Plan: this is a pleasant 65 years old male who presents with bilateral pneumonia, COPD and hypoxia. Continue with Solu-Medrol 40 mg Spectrum antibiotics currently is on Zosyn, with oral Levaquin Continue the breathing treatments and oxygen to keep saturating above 88% to 90% pulmonary consult is appreciated Labs and medication were reviewed.. Continue same treatment. Continue with symptomatic treatment. Resume home medication. Monitor lytes and vitals. DVT and GI prophylaxis. Further recommendationsas per clinical course of the patient DVT prophylaxis: Subcutaneous heparin GI Prophylaxis: Ppi PT/OT: Pending Prognosis is guarded
--- NOTE | 2021-03-20 13:33 | P.PN ---
Subjective Progress Note Date: 03/20/21 Principal diagnosis: Acute hypoxic respiratory failure secondary to COPD exacerbation and suspect bilateral pneumonia although the possibility of pulmonary fibrosis or underlying pulmonary malignancy is not entirely ruled out. 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 Betancur, who presented to the emergency department on 03/19/2021 complaining of increased shortness of breath for the past 4 weeks. He is not oxygen dependent at baseline. He normally sees Dr. Inocente Phillip for his history of COPD however does not want to follow with him any longer. He states he has advanced COPD, and was recently told that his FEV1 dropped from 36% down to 22% in November of this year. He describes progressive shortness of breath, and now he is short of breath just getting dressed. Denied any worsening cough, denied any fevers, at times is able to produce some white colored phlegm. His shortness of breath is mostly exertional. Denies any history of chronic CHF. No lower extremity swelling. He is on nebulized Pulmicort, Ventolin HFA inhaler, and Singulair. His chest x-ray showed bilateral infiltrates and pleural effusions with the possibility of pneumonia versus CHF. There was hyperinflation compatible with COPD. COVID 19 PCR was negative, admission blood work showed elevated d-dimer of 2.39, and for that reason CTA chest was completed, showing no evidence of central pulmonary embolism, this was a suboptimal study, small peripheral segmental and subsegmental PEs could not entirely be excluded. There was evidence of tiny b ilateral pleural effusions, on a background of moderate to advanced emphysematous changes with left midlung multifocal groundglass opacities and basilar groundglass opacities with organizing consolidations right greater than left, with suspicion of multifocal acute infectious process. Patient did have leukocytosis with a white blood cell, of 18.1, hemoglobin was 14.7, sodium was 125, potassium is 5.2, chloride was 87, CO2 was 28, BUN is 12, creatinine 0.56, troponin was less than 0.012, proBNP was 548, LFTs were within normal limits. Patient was started on a combination of azithromycin and Rocephin, IV steroids with Solu-Medrol 40 mg every 8 hours, nebulized bronchodilators and this consult was initiated. Reevaluated today on 03/20/2021, patient is feeling a bit better today, breathing easier. Continues to have intermittent cough, but he mostly has shortness of breath on exertion. Remains on 2 L nasal cannula. WBC count today is 12.69 hemoglobin is 14 sodium is up to 134 potassium is 5.9 chloride is 92 bicarb is 34 BUN is 10 and creatinine 0.52. Considering the potassium is a bit high, it may be hemolyzed, I will recommend repeat potassium. Objective - Vital Signs Vital signs: Vital Signs Temp 98.4 F 03/20/21 07:05 Pulse 108 H 03/20/21 12:10 Resp 17 03/20/21 07:05 BP 126/85 03/20/21 07:05 Pulse Ox 96 03/20/21 07:05 Intake & Output 03/19/21 03/20/21 03/20/21 18:59 06:59 18:59 Intake Total 360 Output Total 1000 Balance 360 -1000 Weight 113.398 kg Intake: Oral 360 Output: Urine 1000 Other: # Voids 3 # Bowel Movements 0 - Exam GENERAL EXAM: Revealed 65-year-old white male, on 2 L nasal cannula, in no distress. HEAD: Normocephalic/atraumatic. HEENT: PERRLA, EOMI, anicteric, no neck masses, no JVD, no stridor. CHEST: No chest wall deformity. Symmetrical expansion. LUNGS: Equal air entry with crackles and wheezing on the bases noted. CVS: Regular rate and rhythm, normal S1 and S2, no gallops, no murmurs, no rubs ABDOMEN: Soft, nontender. No hepatosplenomegaly, normal bowel sounds, no guarding or rigidity. EXTREMITIES: No clubbing, no edema, no cyanosis, 2+ pulses and upper and lower extremities. MUSCULOSKELETAL: Muscle strength and tone normal. Bilateral below the knee amputation, patient has bilateral prosthesis SPINE: No scoliosis or deformity SKIN: No rashes CENTRAL NERVOUS SYSTEM: Alert and oriented 3 in no gross focal deficits. PSYCHIATRIC: Normal mood, affect and normal mental status examination. - Labs CBC & Chem 7: 03/20/21 06:30 03/20/21 06:30 Labs: Abnormal Lab Results - Last 24 Hours (Table) 03/19/21 03/19/21 03/20/21 Range/Units 12:00 12:00 06:30 WBC 12.69 H (4.50-10.00) X 10*3/uL MCHC 30.0 L (32.0-37.0) g/dL RDW 14.8 H (11.5-14.5) % Plt Count 443 H (140-440) X 10*3/uL MPV 9.4 L (9.5-12.2) fL Immature Gran # 0.16 H (0.00-0.04) X 10*3/uL Neutrophils # 11.79 H (1.80-7.70) X 10*3/uL Lymphocytes # 0.48 L (0.90-5.00) X 10*3/uL Eosinophils # 0 L (0.04-0.35) X 10*3/uL Sodium (137-145) mmol/L Potassium (3.5-5.1) mmol/L Chloride (98-107) mmol/L Carbon Dioxide (22-30) mmol/L Creatinine (0.66-1.25) mg/dL Glucose (74-99) mg/dL Osmolality 264 L (280-301) mosm/kg Procalcitonin 0.13 H (0.02-0.09) ng/mL 03/20/21 Range/Units 06:30 WBC (4.50-10.00) X 10*3/uL MCHC (32.0-37.0) g/dL RDW (11.5-14.5) % Plt Count (140-440) X 10*3/uL MPV (9.5-12.2) fL Immature Gran # (0.00-0.04) X 10*3/uL Neutrophils # (1.80-7.70) X 10*3/uL Lymphocytes # (0.90-5.00) X 10*3/uL Eosinophils # (0.04-0.35) X 10*3/uL Sodium 134 L (137-145) mmol/L Potassium 5.9 H (3.5-5.1) mmol/L Chloride 92 L (98-107) mmol/L Carbon Dioxide 34 H (22-30) mmol/L Creatinine 0.52 L (0.66-1.25) mg/dL Glucose 175 H (74-99) mg/dL Osmolality (280-301) mosm/kg Procalcitonin (0.02-0.09) ng/mL Assessment and Plan Assessment: Impression: Acute hypoxic respiratory failure secondary to acute exacerbation of COPD and suspect bilateral pneumonia however the possibility of underlying pulmonary fibrosis and/or malignancy involving the right lower lobe is not entirely ruled out. Severe COPD, FEV1 of 22%. 12-kien-pijl smoking history, and remission for the last 10 years. History of Buerger's disease and bilateral below-knee amputations Benign essential hypertension. Hypovolemic hyponatremia, resolved. Recommendation: Continue present treatment plan including antibiotics. Continue bronchodilators. Continue steroids. Continue Pulmicort and Perforomist. Discussed and reviewed with the patient his CT of the chest findings and the concern about the abnormalities in the lower lobes especially in the right lower lobe, and would like to compare to previous x-rays or scans of the chest supposedly he had many of them done at [facility], and will determine the chronicity of this problem involving the right lower lobe and left lower lobe. Again the possibility of underlying malignancy has to be considered in the differential. However the patient is not a great candidate for any intervention including bronchoscopy and biopsy. We will continue to follow, and will add address these issues on outpatient basis Time with Patient: Less than 30
[2021-03-20] MEDS: LEVOFLOXACIN 750 MG TAB PO SCH (17:05)
[2021-03-20] MEDS: MONTELUKAST 10 MG TAB PO SCH (20:32)
[2021-03-21] MEDS: methylPREDNISolone SOD SUCCI 40 MG/ML 1 ML VIAL IV SCH ×3 (03:39→20:00)
[2021-03-21] MEDS: PIPERACILLIN-TAZOBACTAM 3.375 GM in SODIUM CHLORIDE 0.9% 100 ML IVPB SCH ×3 (06:28→15:43)
[2021-03-21 07:17] LABS: African American GFR (CKD) >90 (>60 ml/min/1.73 sqM); Anion Gap 7 mmol/L; Blood Urea Nitrogen 26 mg/dL (9-20); Calcium 8.8 mg/dL (8.4-10.2); Carbon Dioxide 36 mmol/L (22-30); Chloride 89 mmol/L (98-107); Glucose 164 mg/dL (74-99); Non-African American GFR(CKD) >90 (>60 ml/min/1.73 sqM); Potassium 5.4 mmol/L (3.5-5.1); Sodium 132 mmol/L (137-145)
[2021-03-21] MEDS: PANTOPRAZOLE 40 MG TABLET PO SCH (07:18)
[2021-03-21] MEDS ORDERED: ALPRAZolam 0.25 MG TAB PO PRN (09:13)
[2021-03-21] MEDS: BUDESONIDE 0.5 MG/2 ML NEBU INHALATION SCH ×2 (09:28→19:12)
[2021-03-21] MEDS: FORMOTEROL FUMARATE 20 MCG/2 ML NEBU INHALATION SCH ×2 (09:28→19:12)
[2021-03-21] MEDS: IPRATROPIUM-ALBUTEROL 3 ML NEB INHALATION PRN ×4 (09:28→19:11)
[2021-03-21 09:32] LABS: Basophils # (A) 0.01 X 10*3/uL (0.00-0.10); Basophils % (A) 0.1 %; Eosinophils # (A) 0 X 10*3/uL (0.04-0.35); Eosinophils % (A) 0 %; HCT 42.8 % (39.6-50.0); HGB 12.8 g/dL (13.0-17.0); Lymphocytes # (A) 0.44 X 10*3/uL (0.90-5.00); Lymphocytes % (A) 2.8 %; MCH 28.2 pg (27.0-32.0); MCHC 29.9 g/dL (32.0-37.0); MCV 94.3 fL (80.0-97.0); Mean Platelet Volume 9.8 fL (9.5-12.2); Monocytes # (A) 0.69 X 10*3/uL (0.20-1.00); Monocytes % (A) 4.4 %; Neutrophils # (A) 14.33 X 10*3/uL (1.80-7.70); Neutrophils % (A) 92.1 %; Platelet Count 453 X 10*3/uL (140-440); RBC 4.54 X 10*6/uL (4.40-5.60); WBC 15.57 X 10*3/uL (4.50-10.00)
[2021-03-21] MEDS: DILTIAZEM CD 180 MG CAP.ER.24H PO SCH (10:37)
[2021-03-21] MEDS: FAMOTIDINE 20 MG TAB PO SCH (10:37)
[2021-03-21] MEDS: HEPARIN SODIUM,PORCINE/PF 5,000 UNIT/0.5 ML SYRINGE SQ SCH ×2 (10:37→20:01)
[2021-03-21] MEDS: SODIUM CHLORIDE 0.9% 1,000 ML IV SCH (12:35)
--- NOTE | 2021-03-21 13:50 | P.PN ---
Subjective Progress Note Date: 03/21/21 Acute hypoxic respiratory failure secondary to COPD exacerbation and suspect bilateral pneumonia although the possibility of pulmonary fibrosis or underlying pulmonary malignancy is not entirely ruled out. 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 Betancur, who presented to the emergency department on 03/19/2021 complaining of increased shortness of breath for the past 4 weeks. He is not oxygen dependent at baseline. He normally sees Dr. Inocente Phillip for his history of COPD however does not want to follow with him any longer. He states he has advanced COPD, and was recently told that his FEV1 dropped from 36% down to 22% in November of this year. He describes progressive shortness of breath, and now he is short of breath just getting dressed. Denied any worsening cough, denied any fevers, at times is able to produce some white colored phlegm. His shortness of breath is mostly exertional. Denies any history of chronic CHF. No lower extremity swelling. He is on nebulized Pulmicort, Ventolin HFA inhaler, and Singulair. His chest x-ray showed b ilateral infiltrates and pleural effusions with the possibility of pneumonia versus CHF. There was hyperinflation compatible with COPD. COVID 19 PCR was negative, admission blood work showed elevated d-dimer of 2.39, and for that reason CTA chest was completed, showing no evidence of central pulmonary embolism, this was a suboptimal study, small peripheral segmental and subsegmental PEs could not entirely be excluded. There was evidence of tiny bilateral pleural effusions, on a background of moderate to advanced emphysematous changes with left midlung multifocal groundglass opacities and bas ilar groundglass opacities with organizing consolidations right greater than left, with suspicion of multifocal acute infectious process. Patient did have leukocytosis with a white blood cell, of 18.1, hemoglobin was 14.7, sodium was 125, potassium is 5.2, chloride was 87, CO2 was 28, BUN is 12, creatinine 0.56, troponin was less than 0.012, proBNP was 548, LFTs were within normal limits. Patient was started on a combination of azithromycin and Rocephin, IV steroids with Solu-Medrol 40 mg every 8 hours, nebulized bronchodilators and this consult was initiated. Reevaluated today on 03/20/2021, patient is feeling a bit better today, breathing easier. Continues to have intermittent cough, but he mostly has shortness of breath on exertion. Remains on 2 L nasal cannula. WBC count today is 12.69 hemoglobin is 14 sodium is up to 134 potassium is 5.9 chloride is 92 bicarb is 34 BUN is 10 and creatinine 0.52. Considering the potassium is a bit high, it may be hemolyzed, I will recommend repeat potassium. On today's evaluation, 03/21/2021 patient seen in follow-up on medical surgical floor. He is looking much more comfortable on today's exam, currently on 5 L of oxygen and the pulse ox of 92%, he is afebrile, hemodynamically has been stable. She'll scattered wheezes, less congestion, overall less dyspneic and bronchospastic. He continues on antibiotics form of Levaquin and Zosyn, he remains on IV Solu-Medrol 40 mg daily 8 hours, in addition to nebulized bronchodilators. Cultures have been negative. Complaints of chest discomfort, no hemoptysis, his was able to bring us a CD with his old CT of the chest from May 2020. And patient's old CT did not show the consolidations at bilateral bases that we saw on the CT chest from this admission. Objective - Vital Signs Vital signs: Vital Signs Temp 98.7 F 03/21/21 07:27 Pulse 88 03/21/21 12:05 Resp 18 03/21/21 07:27 BP 118/65 03/21/21 07:27 Pulse Ox 92 L 03/21/21 07:27 Intake & Output 03/20/21 03/21/21 03/21/21 18:59 06:59 18:59 Intake Total 1000 1900 Output Total 500 800 Balance 500 1100 Intake: Intake, IV Titration 1000 700 Amount Piperacillin-Tazobactam 3 100 100 .375 gm In Sodium Chloride 0.9% 100 ml @ 25 mls/hr IVPB Q8HR [facility] Rx# :[id number] Sodium Chloride 0.9% 1, 900 600 000 ml @ 75 mls/hr IV . [id number] [facility] Rx#:[id number] Oral 1200 Output: Urine 500 800 Other: Voiding Method Urinal # Voids 3 - Exam GENERAL EXAM: Alert, very pleasant, 65-year-old white male on 5 L of oxygen and the pulse ox of 92-98% HEAD: Normocephalic/atraumatic. EYES: Normal reaction of pupils, equal size. Conjunctiva pink, sclera white. NOSE: Clear with pink turbinates. THROAT: No erythema or exudates. NECK: No masses, no JVD, no thyroid enlargement, no adenopathy. CHEST: No chest wall deformity. Symmetrical expansion. LUNGS: Equal air entry with diffuse crackles at bilateral bases, and mild wheezing CVS: Regular rate and rhythm, normal S1 and S2, no gallops, no murmurs, no rubs ABDOMEN: Soft, nontender. No hepatosplenomegaly, normal bowel sounds, no guarding or rigidity. EXTREMITIES: No clubbing, no edema, no cyanosis, 2+ pulses and upper and lower extremities. MUSCULOSKELETAL: Muscle strength and tone normal. Bilateral below the knee amputation, patient has bilateral prosthesis SPINE: No scoliosis or deformity SKIN: No rashes CENTRAL NERVOUS SYSTEM: Alert and oriented -3. No focal deficits, tone is normal in all 4 extremities. PSYCHIATRIC: Alert and oriented -3. Appropriate affect. Intact judgment and insight. - Labs CBC & Chem 7: 03/21/21 06:38 03/21/21 06:38 Labs: Abnormal Lab Results - Last 24 Hours (Table) 03/21/21 03/21/21 Range/Units 06:38 06:38 WBC 15.57 H (4.50-10.00) X 10*3/uL Hgb 12.8 L (13.0-17.0) g/dL MCHC 29.9 L (32.0-37.0) g/dL RDW 15.0 H (11.5-14.5) % Plt Count 453 H (140-440) X 10*3/uL Immature Gran # 0.10 H (0.00-0.04) X 10*3/uL Neutrophils # 14.33 H (1.80-7.70) X 10*3/uL Lymphocytes # 0.44 L (0.90-5.00) X 10*3/uL Eosinophils # 0 L (0.04-0.35) X 10*3/uL Sodium 132 L (137-145) mmol/L Potassium 5.4 H (3.5-5.1) mmol/L Chloride 89 L (98-107) mmol/L Carbon Dioxide 36 H (22-30) mmol/L BUN 26 H (9-20) mg/dL Glucose 164 H (74-99) mg/dL Microbiology - Last 24 Hours (Table) 03/19/21 14:57 Blood Culture - Preliminary Blood No Growth after 24 hours Assessment and Plan Plan: Assessment: #1. Acute hypoxic respiratory failure related to acute exacerbation of COPD, and bilateral pneumonia. COVID-19 PCR was negative, chest x-ray shows bilateral infiltrates and pleural effusion. CTA chest was negative for pulmonary embolism, it did show tiny bilateral pleural effusions, multifocal groundglass opacities and basilar groundglass opacities with organizing consolidations right greater than left, correlating for multifocal acute infectious process. #2. Severe stage IV COPD with most recent reported FEV1 of 22% of predicted from November 2020, Prior FEV1 from 5 years ago was 36% of predicted. Was not oxygen dependent up to this point #3. 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 History of Buerger's disease, this post bilateral below the [place] [address] Betancur. Patient has bilateral lower extremity stasis #5. Hypertension #6. Hyperlipidemia #7. Hyponatremia, possibly hypovolemic #8. Increased d-dimer without CTA evidence of pulmonary embolism Plan: Continue current antibiotic coverage Continue steroids, Continue nebulized bronchodilators Pro-calcitonin level has been noted Patient's old CT chest from May 2020 has been reviewed which did not show the bibasilar consolidation seen on the CT chest from this admission, suggesting possibility of pneumonia, and possibility of malignancy still not excluded Patient will be treated with antibiotics He will need outpatient PET scan And will need outpatient follow-up with Dr. Collins in the office Continue current medical treatment He'll likely need home oxygen Wean FiO2 Follow-up chest x-ray in the morning I performed a history & physical examination of the patient and discussed their management with my nurse practitioner, Georgina Jackson. I reviewed the nurse practitioner's note and agree with the documented findings and plan of care. L toni sounds are positive for diffuse wheezes and bibasilar crackles throughout the lung alston. The findings and the impression was discussed with the patient. I attest to the documentation by the nurse practitioner. Time with Patient: Less than 30
--- NOTE | 2021-03-21 14:44 | P.PN ---
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 Presents because of worsening dyspnea over 4 months. He was getting gradually worse associated with Little Phlegm but No Chest Pain. He Has History of COPD He Is to Follow up with Dr. Zaidi and He Wants to Switch His [employer]. He denies nausea vomiting or diarrhea. No urinary complaints. He denies smoking, alcohol or illicit drugs. On admission he was tachycardic with heart rate around 101 207. Tachypneic with a breathing rate 20-28. Little hypertensive at 149/79. And hypoxic needing 10 L oxygen via Ventimask to keep saturation above 98% Labs showed leukocytosis at 18.1 with results of CBC is unremarkable. D-dimer is elevated at 2.3. Sodium is 125, creatinine normal at 0.5. Rest of BMP and liver enzymes are unremarkable. Coronavirus not detected. EKG: Sinus tachycardia at [address]-T changes and QTC of 456. ProBNP is 548. Chest x-ray: Bilateral infiltrates and pleural effusion correlate for pneumonia versus CHF. CT of the chest showing no pulmonary embolism, suboptimal study. Also tiny pleural effusion on both sides. Background moderate to advanced emphysematous change with left midlung multifocal groundglass opacity and basilar groundglass opacity with organizing consolidation right greater than left. Correlate for multifocal acute infectious process. Reactive thoracic adenopathy suspected 03/20/2021 The patient feels less dyspneic while he is at rest. His oxygen requirement down to 8 L/m His leukocytosis improved on 12.6 K, sodium improved up to 134. Potassium high at 5.9, one-time dose of Lasix, insulin/dextrose 50 is given and placed on low- dose potassium diet This reportcalcitonin is mildly elevated at 0.23. He remains on Zosyn, Levaquin, and at 75 mL/h and Solu-Medrol 40 mg 03/21/2021 Patient is improving, his oxygen requirement down to 5 compared to 7.8 yesterday. He is less dyspneic. He is crying for his dying from cancer. His WBC is 15 K but also he is on steroids. His potassium was still high at 5.4, so we discontinued his lisinopril. Current blood pressure is 118/86. Pulmonary team recommended outpatient PET scan to exclude cancer and he needs follow-up with Dr. Collins Objective - Vital Signs Vital signs: Vital Signs Temp 98.7 F 03/21/21 07:27 Pulse 88 03/21/21 12:05 Resp 18 03/21/21 07:27 BP 118/65 03/21/21 07:27 Pulse Ox 92 L 03/21/21 07:27 Intake & Output 03/20/21 03/21/21 03/21/21 18:59 06:59 18:59 Intake Total 1000 1900 Output Total 500 800 Balance 500 1100 Intake: Intake, IV Titration 1000 700 Amount Piperacillin-Tazobactam 3 100 100 .375 gm In Sodium Chloride 0.9% 100 ml @ 25 mls/hr IVPB Q8HR [facility] Rx# :[id number] Sodium Chloride 0.9% 1, 900 600 000 ml @ 75 mls/hr IV . [id number] [facility] Rx#:[id number] Oral 1200 Output: Urine 500 800 Other: Voiding Method Urinal # Voids 3 - Exam -GENERAL: The patient is alert and oriented x3, not in any acute distress. Obese HEENT: Pupils are round and equally reacting to light. EOMI. No scleral icterus. No conjunctival pallor. Normocephalic, atraumatic. No pharyngeal erythema. No thyromegaly. CARDIOVASCULAR: S1 and S2 present. No murmurs, rubs, or gallops. PULMONARY: Chest is clear to auscultation, no wheezing or crackles. ABDOMEN: Soft, nontender, nondistended, normoactive bowel sounds. No palpable organomegaly. MUSCULOSKELETAL: No joint swelling or deformity. EXTREMITIES: No cyanosis, clubbing, or pedal edema. NEUROLOGICAL: Gross neurological examination did not reveal any focal deficits. SKIN: No rashes. no petechiae. - Labs CBC & Chem 7: 03/21/21 06:38 03/21/21 06:38 Labs: Abnormal Lab Results - Last 24 Hours (Table) 03/21/21 03/21/21 Range/Units 06:38 06:38 WBC 15.57 H (4.50-10.00) X 10*3/uL Hgb 12.8 L (13.0-17.0) g/dL MCHC 29.9 L (32.0-37.0) g/dL RDW 15.0 H (11.5-14.5) % Plt Count 453 H (140-440) X 10*3/uL Immature Gran # 0.10 H (0.00-0.04) X 10*3/uL Neutrophils # 14.33 H (1.80-7.70) X 10*3/uL Lymphocytes # 0.44 L (0.90-5.00) X 10*3/uL Eosinophils # 0 L (0.04-0.35) X 10*3/uL Sodium 132 L (137-145) mmol/L Potassium 5.4 H (3.5-5.1) mmol/L Chloride 89 L (98-107) mmol/L Carbon Dioxide 36 H (22-30) mmol/L BUN 26 H (9-20) mg/dL Glucose 164 H (74-99) mg/dL Microbiology - Last 24 Hours (Table) 03/19/21 14:57 Blood Culture - Preliminary Blood No Growth after 24 hours Assessment and Plan Assessment: Bilateral diffuse groundglass with organizing pneumonia Advanced COPD with exacerbation Acute hypoxic respiratory failure secondary to above Hypertension Hyperlipidemia History of Buerger disease status post lower extremity bilateral amputation Plan: this is a pleasant 65 years old male who presents with bilateral pneumonia, COPD and hypoxia. Continue with Solu-Medrol 40 mg Spectrum antibiotics currently is on Zosyn, with oral Levaquin Continue the breathing treatments and oxygen to keep saturating above 88% to 90% pulmonary consult is appreciated. Patient will need PET scan and pulmonary follow-up as an outpatient upon discharge Labs and medication were reviewed.. Continue same treatment. Continue with symptomatic treatment. Resume home medication. Monitor lytes and vitals. DVT and GI prophylaxis. Further recommendationsas per clinical course of the patient DVT prophylaxis: Subcutaneous heparin GI Prophylaxis: Ppi PT/OT: Home Prognosis is guarded
[2021-03-21] MEDS: LEVOFLOXACIN 750 MG TAB PO SCH (17:02)
[2021-03-21] MEDS: MONTELUKAST 10 MG TAB PO SCH (20:00)
[2021-03-22] MEDS: PIPERACILLIN-TAZOBACTAM 3.375 GM in SODIUM CHLORIDE 0.9% 100 ML IVPB SCH ×3 (00:22→16:22)
[2021-03-22] MEDS: SODIUM CHLORIDE 0.9% 1,000 ML IV SCH ×2 (00:22→11:29)
[2021-03-22] MEDS: methylPREDNISolone SOD SUCCI 40 MG/ML 1 ML VIAL IV SCH ×3 (04:28→20:01)
[2021-03-22] MEDS: DILTIAZEM CD 180 MG CAP.ER.24H PO SCH (07:30)
[2021-03-22] MEDS: HEPARIN SODIUM,PORCINE/PF 5,000 UNIT/0.5 ML SYRINGE SQ SCH ×2 (07:30→20:01)
[2021-03-22] MEDS: PANTOPRAZOLE 40 MG TABLET PO SCH (07:30)
[2021-03-22] MEDS: FAMOTIDINE 20 MG TAB PO SCH (07:31)
--- NOTE | 2021-03-22 07:57 | XR ---
EXAMINATION TYPE: XR chest 1V portable DATE OF EXAM: 03/22/2021 CLINICAL HISTORY: Difficulty breathing and pneumonia progress study. TECHNIQUE: 2 AP portable upright views of the chest are obtained. COMPARISON: Chest x-ray and CTA chest from 3 days earlier. FINDINGS: Large pulmonary emboli scattered throughout both lungs including periphery of the right lo wer lobe redemonstrated. Background chronic emphysematous change with persistent right lower lung opa city and worsening left mid to lower lung reticular and reticulonodular opacity. Cardiac silhouette s ize stable and within normal limits. Osseous structures are intact. Some trapped fluid in the right l toni fissure redemonstrated. IMPRESSION: Background chronic emphysematous change with bilateral lower lung acute infiltrates exten ding to left mid lung region. Findings fairly stable on the right but show interval progression on th e left from 3 days earlier.
[2021-03-22 08:48] LABS: African American GFR (CKD) >90 (>60 ml/min/1.73 sqM); Anion Gap 5 mmol/L; Blood Urea Nitrogen 18 mg/dL (9-20); Calcium 8.7 mg/dL (8.4-10.2); Carbon Dioxide 39 mmol/L (22-30); Chloride 91 mmol/L (98-107); Glucose 233 mg/dL (74-99); Non-African American GFR(CKD) >90 (>60 ml/min/1.73 sqM); Sodium 135 mmol/L (137-145)
[2021-03-22] MEDS: FORMOTEROL FUMARATE 20 MCG/2 ML NEBU INHALATION SCH ×2 (08:55→20:55)
[2021-03-22] MEDS: BUDESONIDE 0.5 MG/2 ML NEBU INHALATION SCH ×2 (08:55→20:55)
[2021-03-22] MEDS: IPRATROPIUM-ALBUTEROL 3 ML NEB INHALATION PRN ×3 (08:55→20:55)
[2021-03-22 10:44] LABS: Basophils # (A) 0.01 X 10*3/uL (0.00-0.10); Basophils % (A) 0.1 %; Eosinophils # (A) 0 X 10*3/uL (0.04-0.35); Eosinophils % (A) 0 %; HCT 44.6 % (39.6-50.0); Lymphocytes # (A) 0.55 X 10*3/uL (0.90-5.00); MCH 27.1 pg (27.0-32.0); MCHC 29.1 g/dL (32.0-37.0); MCV 92.9 fL (80.0-97.0); Mean Platelet Volume 9.6 fL (9.5-12.2); Monocytes % (A) 6.5 %; Neutrophils # (A) 12.31 X 10*3/uL (1.80-7.70); Neutrophils % (A) 88.5 %; Platelet Count 491 X 10*3/uL (140-440); RDW 15.1 % (11.5-14.5); WBC 13.89 X 10*3/uL (4.50-10.00)
[2021-03-22] MEDS ORDERED: ACETAMINOPHEN TAB 325 MG TAB PO PRN (11:14)
[2021-03-22] MEDS ORDERED: HYDROcodone/APAP 5-325MG 1 EACH TAB PO PRN (11:24)
--- NOTE | 2021-03-22 13:05 | P.PN ---
Subjective Progress Note Date: 03/22/21 Acute hypoxic respiratory failure secondary to COPD exacerbation and suspect bilateral pneumonia although the possibility of pulmonary fibrosis or underlying pulmonary malignancy is not entirely ruled out. 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 Betancur, who presented to the emergency department on 03/19/2021 complaining of increased shortness of breath for the past 4 weeks. He is not oxygen dependent at baseline. He normally sees Dr. Inocente Phillip for his history of COPD however does not want to follow with him any longer. He states he has advanced COPD, and was recently told that his FEV1 dropped from 36% down to 22% in November of this year. He describes progressive shortness of breath, and now he is short of breath just getting dressed. Denied any worsening cough, denied any fevers, at times is able to produce some white colored phlegm. His shortness of breath is mostly exertional. Denies any history of chronic CHF. No lower extremity swelling. He is on nebulized Pulmicort, Ventolin HFA inhaler, and Singulair. His chest x-ray showed b ilateral infiltrates and pleural effusions with the possibility of pneumonia versus CHF. There was hyperinflation compatible with COPD. COVID 19 PCR was negative, admission blood work showed elevated d-dimer of 2.39, and for that reason CTA chest was completed, showing no evidence of central pulmonary embolism, this was a suboptimal study, small peripheral segmental and subsegmental PEs could not entirely be excluded. There was evidence of tiny bilateral pleural effusions, on a background of moderate to advanced emphysematous changes with left midlung multifocal groundglass opacities and bas ilar groundglass opacities with organizing consolidations right greater than left, with suspicion of multifocal acute infectious process. Patient did have leukocytosis with a white blood cell, of 18.1, hemoglobin was 14.7, sodium was 125, potassium is 5.2, chloride was 87, CO2 was 28, BUN is 12, creatinine 0.56, troponin was less than 0.012, proBNP was 548, LFTs were within normal limits. Patient was started on a combination of azithromycin and Rocephin, IV steroids with Solu-Medrol 40 mg every 8 hours, nebulized bronchodilators and this consult was initiated. Reevaluated today on 03/20/2021, patient is feeling a bit better today, breathing easier. Continues to have intermittent cough, but he mostly has shortness of breath on exertion. Remains on 2 L nasal cannula. WBC count today is 12.69 hemoglobin is 14 sodium is up to 134 potassium is 5.9 chloride is 92 bicarb is 34 BUN is 10 and creatinine 0.52. Considering the potassium is a bit high, it may be hemolyzed, I will recommend repeat potassium. On today's evaluation, 03/21/2021 patient seen in follow-up on medical surgical floor. He is looking much more comfortable on today's exam, currently on 5 L of oxygen and the pulse ox of 92%, he is afebrile, hemodynamically has been stable. She'll scattered wheezes, less congestion, overall less dyspneic and bronchospastic. He continues on antibiotics form of Levaquin and Zosyn, he remains on IV Solu-Medrol 40 mg daily 8 hours, in addition to nebulized bronchodilators. Cultures have been negative. Complaints of chest discomfort, no hemoptysis, his was able to bring us a CD with his old CT of the chest from May 2020. And patient's old CT did not show the consolidations at bilateral bases that we saw on the CT chest from this admission. On 03/22/2021 patient seen in follow-up on general medical floor, he is awake and alert, still slightly bronchospastic, and does have a congestive cough, he is unable to bring up any sputum, but feeling better since admission. He is currently on 4 L of oxygen, 94% O2 saturations, he is afebrile, she remains on Zosyn and Levaquin, he is on IV steroids, and nebulized bronchodilators, his pro calcitonin level from 2 days ago was 0.13. Not significantly elevated, no hemoptysis, no chest discomfort. Follow-up chest x-ray today showing slight improvement in the appearance of right basilar infiltrates, and persistence of bilateral lower lung acute infiltrates extending to the left mid lung region. The radiologist felt that they were fairly stable in appearance. Patient is still requiring 5 L of oxygen, normally not oxygen dependent. Today's labs have been reviewed, his white blood cell count is down slightly and is at 13.8, hemoglobin is 13, sodium is 135, potassium is 5.0, chloride is 91, CO2 39, BUN is 18, creatinine 0.59 Objective - Vital Signs Vital signs: Vital Signs Temp 99.2 F 03/22/21 08:00 Pulse 81 03/22/21 12:04 Resp 18 03/22/21 12:04 BP 127/70 03/22/21 08:00 Pulse Ox 94 L 03/22/21 12:04 Intake & Output 03/21/21 03/22/21 03/22/21 18:59 06:59 18:59 Intake Total 1300 Output Total 700 800 Balance -700 500 Intake: Intake, IV Titration 700 Amount Piperacillin-Tazobactam 3 100 .375 gm In Sodium Chloride 0.9% 100 ml @ 25 mls/hr IVPB Q8HR [facility] Rx# :[id number] Sodium Chloride 0.9% 1, 600 000 ml @ 75 mls/hr IV . [id number] [facility] Rx#:[id number] Oral 600 Output: Urine 700 800 - Exam GENERAL EXAM: Alert, very pleasant, 65-year-old white male on 4 L of oxygen and the pulse ox of 94% HEAD: Normocephalic/atraumatic. EYES: Normal reaction of pupils, equal size. Conjunctiva pink, sclera white. NOSE: Clear with pink turbinates. THROAT: No erythema or exudates. NECK: No masses, no JVD, no thyroid enlargement, no adenopathy. CHEST: No chest wall deformity. Symmetrical expansion. LUNGS: Equal air entry with diffuse crackles at bilateral bases, and mild wheezing CVS: Regular rate and rhythm, normal S1 and S2, no gallops, no murmurs, no rubs ABDOMEN: Soft, nontender. No hepatosplenomegaly, normal bowel sounds, no guarding or rigidity. EXTREMITIES: No clubbing, no edema, no cyanosis, 2+ pulses and upper and lower extremities. MUSCULOSKELETAL: Muscle strength and tone normal. Bilateral below the knee amputation, patient has bilateral prosthesis SPINE: No scoliosis or deformity SKIN: No rashes CENTRAL NERVOUS SYSTEM: Alert and oriented -3. No focal deficits, tone is normal in all 4 extremities. PSYCHIATRIC: Alert and oriented -3. Appropriate affect. Intact judgment and insight. - Labs CBC & Chem 7: 03/22/21 05:44 03/22/21 08:17 Labs: Abnormal Lab Results - Last 24 Hours (Table) 03/22/21 03/22/21 Range/Units 05:44 08:17 WBC 13.89 H (4.50-10.00) X 10*3/uL MCHC 29.1 L (32.0-37.0) g/dL RDW 15.1 H (11.5-14.5) % Plt Count 491 H (140-440) X 10*3/uL Plt Count Comment INCREASED A Immature Gran # 0.12 H (0.00-0.04) X 10*3/uL Neutrophils # 12.31 H (1.80-7.70) X 10*3/uL Lymphocytes # 0.55 L (0.90-5.00) X 10*3/uL Eosinophils # 0 L (0.04-0.35) X 10*3/uL Sodium 135 L (137-145) mmol/L Chloride 91 L (98-107) mmol/L Carbon Dioxide 39 H (22-30) mmol/L Creatinine 0.59 L (0.66-1.25) mg/dL Glucose 233 H (74-99) mg/dL Microbiology - Last 24 Hours (Table) 03/19/21 14:57 Blood Culture - Preliminary Blood No Growth after 48 hours Assessment and Plan Plan: Assessment: #1. Acute hypoxic respiratory failure related to acute exacerbation of COPD, and bilateral pneumonia. COVID-19 PCR was negative, chest x-ray shows bilateral infiltrates and pleural effusion. CTA chest was negative for pulmonary embolism, it did show tiny bilateral pleural effusions, multifocal groundglass opacities and basilar groundglass opacities with organizing consolidations right greater than left, correlating for multifocal acute infectious process. #2. Severe stage IV COPD with most recent reported FEV1 of 22% of predicted fro November 2020, Prior FEV1 from 5 years ago was 36% of predicted. Was not oxygen dependent up to this point #3. 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 History of Buerger's disease, this post bilateral below the [place] [address] Betancur. Patient has bilateral lower extremity stasis #5. Hypertension #6. Hyperlipidemia #7. Hyponatremia, possibly hypovolemic #8. Increased d-dimer without CTA evidence of pulmonary embolism Plan: Continue current antibiotic coverage Continue steroids, Continue nebulized bronchodilators Continue weaning FiO2, and hopefully we can get the oxygen requirement down to 2-3 L/m Continue IV steroids Today's chest x-ray has been reviewed showing possible improvement in the appearance of right basilar infiltrates and persistence of bibasilar infiltrates Clinically stable, improving, feeling better, breathing better We will start did not patient ready for home discharge in the next 24 hours He will most likely need home oxygen to go home on He will need to finish outpatient course of antibiotics, steroid taper, And she will need to see Dr. Lopez any office in 7-10 days after discharge He will need outpatient PET scan once he completes his antibiotics I performed a history & physical examination of the patient and discussed their management with my nurse practitioner, Georgina Jackson. I reviewed the nurse practitioner's note and agree with the documented findings and plan of care. Lung sounds are positive for diffuse wheezes and bibasilar crackles throughout the lung alston. The findings and the impression was discussed with the patient. I attest to the documentation by the nurse practitioner. Time with Patient: Less than 30
--- NOTE | 2021-03-22 16:08 | P.PN ---
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 Presents because of worsening dyspnea over 4 months. He was getting gradually worse associated with Little Phlegm but No Chest Pain. He Has History of COPD He Is to Follow up with Dr. Zaidi and He Wants to Switch His [employer] or [employer]. He denies nausea vomiting or diarrhea. No urinary complaints. He denies smoking, alcohol or illicit drugs. On admission he was tachycardic with heart rate around 101 207. Tachypneic with a breathing rate 20-28. Little hypertensive at 149/79. And hypoxic needing 10 L oxygen via Ventimask to keep saturation above 98% Labs showed leukocytosis at 18.1 with results of CBC is unremarkable. D-dimer is elevated at 2.3. Sodium is 125, creatinine normal at 0.5. Rest of BMP and liver enzymes are unremarkable. Coronavirus not detected. EKG: Sinus tachycardia at [address]-T changes and QTC of 456. ProBNP is 548. Chest x-ray: Bilateral infiltrates and pleural effusion correlate for pneumonia versus CHF. CT of the chest showing no pulmonary embolism, suboptimal study. Also tiny pleural effusion on both sides. Background moderate to advanced emphysematous change with left midlung multifocal groundglass opacity and basilar groundglass opacity with organizing consolidation right greater than left. Correlate for multifocal acute infectious process. Reactive thoracic adenopathy suspected 03/20/2021 The patient feels less dyspneic while he is at rest. His oxygen requirement down to 8 L/m His leukocytosis improved on 12.6 K, sodium improved up to 134. Potassium high at 5.9, one-time dose of Lasix, insulin/dextrose 50 is given and placed on low- dose potassium diet This reportcalcitonin is mildly elevated at 0.23. He remains on Zosyn, Levaquin, and at 75 mL/h and Solu-Medrol 40 mg 03/21/2021 Patient is improving, his oxygen requirement down to 5 compared to 7.8 yesterday. He is less dyspneic. He is crying for his dying from cancer. His WBC is 15 K but also he is on steroids. His potassium was still high at 5.4, so we discontinued his lisinopril. Current blood pressure is 118/86. Pulmonary team recommended outpatient PET scan to exclude cancer and he needs follow-up with Dr. Collins 03/22/2021 Patient was complaining of from headache today other than that he is clinically the same or slightly improving. His headache improved with [place] He is hemodynamically stable, his oxygen requirement is 45 L/m today. Heart rate is 105 which is slightly better. He is breathing quite her at 18 breaths per minute His potassium actually improved today down to 5.0 after discontinuing his lisinopril for hyperkalemia. He has mild leukocytosis while he is on steroids. Sodium is 135. Chest x-ray showing finding fairly stable on the right but showed interval progression on the left from 3 days earlier. With emphysema and bilateral lower lung acute infiltrates He is currently continued on Zosyn and Levaquin. Solu-Medrol 40 mg and normal saline at 75 mL/h Today I told the patient he needs to follow up with Dr. Collins in 7-10 days for PET scan to exclude lung cancer and he agreed Objective - Vital Signs Vital signs: Vital Signs Temp 98.5 F 03/22/21 14:00 Pulse 105 H 03/22/21 14:00 Resp 18 03/22/21 14:00 BP 113/58 03/22/21 14:00 Pulse Ox 90 L 03/22/21 14:00 Intake & Output 03/21/21 03/22/21 03/22/21 18:59 06:59 18:59 Intake Total 1300 Output Total 700 800 Balance -700 500 Intake: Intake, IV Titration 700 Amount Piperacillin-Tazobactam 3 100 .375 gm In Sodium Chloride 0.9% 100 ml @ 25 mls/hr IVPB Q8HR [facility] Rx# :[id number] Sodium Chloride 0.9% 1, 600 000 ml @ 75 mls/hr IV . [id number] [facility] Rx#:[id number] Oral 600 Output: Urine 700 800 - Exam -GENERAL: The patient is alert and oriented x3, not in any acute distress. Obese HEENT: Pupils are round and equally reacting to light. EOMI. No scleral icterus. No conjunctival pallor. Normocephalic, atraumatic. No pharyngeal erythema. No thyromegaly. CARDIOVASCULAR: S1 and S2 present. No murmurs, rubs, or gallops. PULMONARY: Chest is clear to auscultation, no wheezing or crackles. ABDOMEN: Soft, nontender, nondistended, normoactive bowel sounds. No palpable organomegaly. MUSCULOSKELETAL: No joint swelling or deformity. EXTREMITIES: No cyanosis, clubbing, or pedal edema. NEUROLOGICAL: Gross neurological examination did not reveal any focal deficits. SKIN: No rashes. no petechiae. - Labs CBC & Chem 7: 03/22/21 05:44 03/22/21 08:17 Labs: Abnormal Lab Results - Last 24 Hours (Table) 03/22/21 03/22/21 Range/Units 05:44 08:17 WBC 13.89 H (4.50-10.00) X 10*3/uL MCHC 29.1 L (32.0-37.0) g/dL RDW 15.1 H (11.5-14.5) % Plt Count 491 H (140-440) X 10*3/uL Plt Count Comment INCREASED A Immature Gran # 0.12 H (0.00-0.04) X 10*3/uL Neutrophils # 12.31 H (1.80-7.70) X 10*3/uL Lymphocytes # 0.55 L (0.90-5.00) X 10*3/uL Eosinophils # 0 L (0.04-0.35) X 10*3/uL Sodium 135 L (137-145) mmol/L Chloride 91 L (98-107) mmol/L Carbon Dioxide 39 H (22-30) mmol/L Creatinine 0.59 L (0.66-1.25) mg/dL Glucose 233 H (74-99) mg/dL Microbiology - Last 24 Hours (Table) 03/19/21 14:57 Blood Culture - Preliminary Blood No Growth after 48 hours Assessment and Plan Assessment: Bilateral diffuse groundglass with organizing pneumonia Advanced COPD with exacerbation Acute hypoxic respiratory failure secondary to above Hyperkalemia secondary to lisinopril which is discontinued Hypertension Hyperlipidemia History of Buerger disease status post lower extremity bilateral amputation Plan: this is a pleasant 65 years old male who presents with bilateral pneumonia, COPD and hypoxia. Continue with Solu-Medrol 40 mg Spectrum antibiotics currently is on Zosyn, with oral Levaquin Continue the breathing treatments and oxygen to keep saturating above 88% to 90% pulmonary consult is appreciated. Patient will need PET scan and pulmonary follow-up as an outpatient upon discharge, patient informed and he agrees to follow up with Dr. Salas on 7-10 days upon discharge for this purpose Discontinue lisinopril for hyperkalemia Labs and medication were reviewed.. Continue same treatment. Continue with symptomatic treatment. Resume home medication. Monitor lytes and vitals. DVT and GI prophylaxis. Further recommendationsas per clinical course of the patient DVT prophylaxis: Subcutaneous heparin GI Prophylaxis: Ppi PT/OT: Home Prognosis is guarded
[2021-03-22] MEDS: LEVOFLOXACIN 750 MG TAB PO SCH (16:22)
[2021-03-22] MEDS: MONTELUKAST 10 MG TAB PO SCH (20:01)
[2021-03-23] MEDS: PIPERACILLIN-TAZOBACTAM 3.375 GM in SODIUM CHLORIDE 0.9% 100 ML IVPB SCH ×2 (00:53→08:06)
[2021-03-23] MEDS: methylPREDNISolone SOD SUCCI 40 MG/ML 1 ML VIAL IV SCH ×2 (03:34→12:15)
[2021-03-23 03:57] VITALS: RESP 16
[2021-03-23] MEDS: SODIUM CHLORIDE 0.9% 1,000 ML IV SCH (05:36)
[2021-03-23] MEDS: FAMOTIDINE 20 MG TAB PO SCH (08:05)
[2021-03-23] MEDS: DILTIAZEM CD 180 MG CAP.ER.24H PO SCH (08:05)
[2021-03-23] MEDS: PANTOPRAZOLE 40 MG TABLET PO SCH (08:06)
[2021-03-23] MEDS: HEPARIN SODIUM,PORCINE/PF 5,000 UNIT/0.5 ML SYRINGE SQ SCH (08:06)
[2021-03-23 08:10] VITALS: BP 169/76; TEMP 98.6
[2021-03-23 08:30] LABS: African American GFR (CKD) >90 (>60 ml/min/1.73 sqM); Blood Urea Nitrogen 18 mg/dL (9-20); Chloride 91 mmol/L (98-107); Glucose 147 mg/dL (74-99); Non-African American GFR(CKD) >90 (>60 ml/min/1.73 sqM); Potassium 5.4 mmol/L (3.5-5.1); Sodium 134 mmol/L (137-145)
[2021-03-23 08:36] LABS: Anion Gap 4 mmol/L
[2021-03-23] MEDS: FORMOTEROL FUMARATE 20 MCG/2 ML NEBU INHALATION SCH (08:56)
[2021-03-23] MEDS: BUDESONIDE 0.5 MG/2 ML NEBU INHALATION SCH (08:56)
[2021-03-23] MEDS: IPRATROPIUM-ALBUTEROL 3 ML NEB INHALATION PRN ×2 (08:56→13:01)
[2021-03-23 08:58] LABS: Carbon Dioxide 39 mmol/L (22-30)
[2021-03-23 10:43] LABS: Basophils # (A) 0 X 10*3/uL (0.00-0.10); Basophils % (A) 0 %; Eosinophils # (A) 0.01 X 10*3/uL (0.04-0.35); Eosinophils % (A) 0.1 %; HCT 44.4 % (39.6-50.0); HGB 12.8 g/dL (13.0-17.0); Lymphocytes # (A) 0.23 X 10*3/uL (0.90-5.00); Lymphocytes % (A) 2.3 %; MCH 26.7 pg (27.0-32.0); MCHC 28.8 g/dL (32.0-37.0); MCV 92.7 fL (80.0-97.0); Mean Platelet Volume 9.4 fL (9.5-12.2); Monocytes # (A) 0.47 X 10*3/uL (0.20-1.00); Monocytes % (A) 4.7 %; Neutrophils # (A) 9.15 X 10*3/uL (1.80-7.70); Neutrophils % (A) 92.4 %; Platelet Count 422 X 10*3/uL (140-440); RBC 4.79 X 10*6/uL (4.40-5.60); WBC 9.91 X 10*3/uL (4.50-10.00)
[2021-03-23 13:13] VITALS: PULSE 106
--- NOTE | 2021-03-23 14:04 | P.PN ---
Subjective Progress Note Date: 03/23/21 Principal diagnosis: Acute hypoxic respiratory failure secondary to COPD exacerbation and suspect bilateral pneumonia although the possibility of pulmonary fibrosis or underlying pulmonary malignancy is not entirely ruled out. 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 Betancur, who presented to the emergency department on 03/19/2021 complaining of increased shortness of breath for the past 4 weeks. He is not oxygen dependent at baseline. He normally sees Dr. Inocente Phillip for his history of COPD however does not want to follow with him any longer. He states he has advanced COPD, and was recently told that his FEV1 dropped from 36% down to 22% in November of this year. He describes progressive shortness of breath, and now he is short of breath just getting dressed. Denied any worsening cough, denied any fevers, at times is able to produce some white colored phlegm. His shortness of breath is mostly exertional. Denies any history of chronic CHF. No lower extremity swelling. He is on nebulized Pulmicort, Ventolin HFA inhaler, and Singulair. His chest x-ray showed bilateral infiltrates and pleural effusions with the possibility of pneumonia versus CHF. There was hyperinflation compatible with COPD. COVID 19 PCR was negative, admission blood work showed elevated d-dimer of 2.39, and for that reason CTA chest was completed, showing no evidence of central pulmonary embolism, this was a suboptimal study, small peripheral segmental and subsegmental PEs could not entirely be excluded. There was evidence of tiny b ilateral pleural effusions, on a background of moderate to advanced emphysematous changes with left midlung multifocal groundglass opacities and basilar groundglass opacities with organizing consolidations right greater than left, with suspicion of multifocal acute infectious process. Patient did have leukocytosis with a white blood cell, of 18.1, hemoglobin was 14.7, sodium was 125, potassium is 5.2, chloride was 87, CO2 was 28, BUN is 12, creatinine 0.56, troponin was less than 0.012, proBNP was 548, LFTs were within normal limits. Patient was started on a combination of azithromycin and Rocephin, IV steroids with Solu-Medrol 40 mg every 8 hours, nebulized bronchodilators and this consult was initiated. Reevaluated today on 03/20/2021, patient is feeling a bit better today, breathing easier. Continues to have intermittent cough, but he mostly has shortness of breath on exertion. Remains on 2 L nasal cannula. WBC count today is 12.69 hemoglobin is 14 sodium is up to 134 potassium is 5.9 chloride is 92 bicarb is 34 BUN is 10 and creatinine 0.52. Considering the potassium is a bit high, it may be hemolyzed, I will recommend repeat potassium. On today's evaluation, 03/21/2021 patient seen in follow-up on medical surgical floor. He is looking much more comfortable on today's exam, currently on 5 L of oxygen and the pulse ox of 92%, he is afebrile, hemodynamically has been stable. She'll scattered wheezes, less congestion, overall less dyspneic and bronchospastic. He continues on antibiotics form of Levaquin and Zosyn, he remains on IV Solu-Medrol 40 mg daily 8 hours, in addition to nebulized bronchodilators. Cultures have been negative. Complaints of chest discomfort, no hemoptysis, his was able to bring us a CD with his old CT of the chest from May 2020. And patient's old CT did not show the consolidations at bilateral bases that we saw on the CT chest from this admission. On 03/22/2021 patient seen in follow-up on general medical floor, he is awake and alert, still slightly bronchospastic, and does have a congestive cough, he is unable to bring up any sputum, but feeling better since admission. He is currently on 4 L of oxygen, 94% O2 saturations, he is afebrile, she remains on Zosyn and Levaquin, he is on IV steroids, and nebulized bronchodilators, his pro calcitonin level from 2 days ago was 0.13. Not significantly elevated, no he moptysis, no chest discomfort. Follow-up chest x-ray today showing slight improvement in the appearance of right basilar infiltrates, and persistence of bilateral lower lung acute infiltrates extending to the left mid lung region. The radiologist felt that they were fairly stable in appearance. Patient is still requiring 5 L of oxygen, normally not oxygen dependent. Today's labs have been reviewed, his white blood cell count is down slightly and is at 13.8, hemoglobin is 13, sodium is 135, potassium is 5.0, chloride is 91, CO2 39, BUN is 18, creatinine 0.59 Patient was reevaluated today on 03/23/2021, patient remains on the regular medical floor, doing extremely well, patient is urgent to go home. He will definitely require home oxygen, he will require bronchodilators, and clinically the patient states that he is feeling better compared to how he felt when he came in. Today I will clear the patient to go home on antibiotics, I'm also cleared him to go home on bronchodilators/updrafts, prednisone burst and taper, and trelegy ellipta/home oxygen was prescribed. And his prescription was sent to pharmacy. Objective - Vital Signs Vital signs: Vital Signs Temp 98.6 F 03/23/21 08:00 Pulse 106 H 03/23/21 13:12 Resp 16 03/23/21 08:00 BP 169/76 03/23/21 08:00 Pulse Ox 92 L 03/23/21 08:00 Intake & Output 03/22/21 03/23/21 03/23/21 18:59 06:59 18:59 Other: Voiding Method Urinal Urinal # Voids 2 3 # Bowel Movements 1 - Exam GENERAL EXAM: Revealed 65-year-old white male, on 2 L nasal cannula, in no distress. HEAD: Normocephalic/atraumatic. HEENT: PERRLA, EOMI, anicteric, no neck masses, no JVD, no stridor. CHEST: No chest wall deformity. Symmetrical expansion. LUNGS: Equal air entry with crackles and wheezing on the bases noted. CVS: Regular rate and rhythm, normal S1 and S2, no gallops, no murmurs, no rubs ABDOMEN: Soft, nontender. No hepatosplenomegaly, normal bowel sounds, no guarding or rigidity. EXTREMITIES: No clubbing, no edema, no cyanosis, 2+ pulses and upper and lower extremities. MUSCULOSKELETAL: Muscle strength and tone normal. Bilateral below the knee amputation, patient has bilateral prosthesis SPINE: No scoliosis or deformity SKIN: No rashes CENTRAL NERVOUS SYSTEM: Alert and oriented 3 in no gross focal deficits. PSYCHIATRIC: Normal mood, affect and normal mental status examination. - Labs CBC & Chem 7: 03/23/21 07:19 03/23/21 07:19 Labs: Abnormal Lab Results - Last 24 Hours (Table) 03/23/21 03/23/21 Range/Units 07:19 07:19 Hgb 12.8 L (13.0-17.0) g/dL MCH 26.7 L (27.0-32.0) pg MCHC 28.8 L (32.0-37.0) g/dL RDW 15.0 H (11.5-14.5) % MPV 9.4 L (9.5-12.2) fL Immature Gran # 0.05 H (0.00-0.04) X 10*3/uL Neutrophils # 9.15 H (1.80-7.70) X 10*3/uL Lymphocytes # 0.23 L (0.90-5.00) X 10*3/uL Eosinophils # 0.01 L (0.04-0.35) X 10*3/uL Sodium 134 L (137-145) mmol/L Potassium 5.4 H (3.5-5.1) mmol/L Chloride 91 L (98-107) mmol/L Carbon Dioxide 39 H (22-30) mmol/L Creatinine 0.54 L (0.66-1.25) mg/dL Glucose 147 H (74-99) mg/dL Microbiology - Last 24 Hours (Table) 03/19/21 14:57 Blood Culture - Preliminary Blood No Growth after 72 hours Assessment and Plan Assessment: Impression: Acute hypoxic respiratory failure secondary to acute exacerbation of COPD and suspect bilateral pneumonia however the possibility of underlying pulmonary fibr osis and/or malignancy involving the right lower lobe is not entirely ruled out. Severe COPD, FEV1 of 22%. [id number] smoking history, and remission for the last 10 years. History of Buerger's disease and bilateral below-knee amputations Benign essential hypertension. Hypovolemic hyponatremia, resolved. Recommendation: Oral antibiotics. For at least 7 more days. Continue bronchodilators./DuoNeb. Resume burst and taper. trelegy on outpatient basis to replace his Pulmicort and Perforomist.. Patient to come and see me in the office in one week, will likely recommend a PET scan, and the check his PFT on his next visit. And decide on further treatment options. Again clear to be discharged home today. Time with Patient: Less than 30
== END 2021-03-23 14:16 | disposition home or self-care (01) | DRG 193 ==
LOC: EC 10:38 → 4SSUR 15:25
PROVIDERS: ADMIT Internal Medicine; ATTEND Internal Medicine
DX: J18.9 Pneumonia, unspecified organism (principal); J96.01 Acute respiratory failure with hypoxia; E87.1 Hypo-osmolality and hyponatremia; J43.9 Emphysema, unspecified; E78.5 Hyperlipidemia, unspecified; E86.1 Hypovolemia; E87.5 Hyperkalemia; I10 Essential (primary) hypertension; Z20.822 Contact with and (suspected) exposure to COVID-19; T46.4X5A Adverse effect of angiotensin-converting-enzyme inhibitors, initial encounter; Z79.899 Other long term (current) drug therapy; Z87.891 Personal history of nicotine dependence; Z89.511 Acquired absence of right leg below knee; Z89.512 Acquired absence of left leg below knee; I73.1 Thromboangiitis obliterans [Buerger's disease]
CPT/HCPCS: 36415; 71045; 71046; 71275; 80048; 80053; 82803; 83605; 83880; 83930; 83935; 84132; 84145; 84484; 85025; 85379; 85610; 85730; 87040; 87635; 93005; 94640; 96365; 96368; 96375; 99285